=== PATIENT | female | born 1950 | race Caucasian/White ===

== ENCOUNTER 2017-04-18 13:23 | Outpatient (CLI) | payer MEDICARE, OTHER ==
--- NOTE | 2017-04-19 15:27 | Mammography Report ---
DIGITAL SCREENING MAMMOGRAM: 04/18/2017 CLINICAL INDICATION: A 67-year-old for screening. TECHNIQUE: Routine CC and MLO projections were obtained of the breasts. COMPARISON: 03/2014, 03/2013, 02/2010, 09/2008. FINDINGS: The breasts demonstrate scattered fibroglandular densities bilaterally. Coarse and puncta te, typically benign calcifications are present. No suspicious masses, clustered microcalcifications , or regions of architectural distortion are identified. IMPRESSION: BENIGN FINDINGS. RECOMMENDATION: Routine annual screening unless otherwise clinically indicated. BI-RADS category 2, benign findings. STANDARD QUALIFYING STATEMENTS 1. This examination was reviewed with the aid of Computer-Aided Detection (CAD). 2. A negative or benign imaging report should not delay biopsy if clinically suspicious findings are present. Consider surgical consultation if warranted. More than 5% of cancers are not identified by i maging. 3. Dense breasts may obscure an underlying neoplasm. :9 JOB #: [id number] EXT JOB #:[id number]
== END 2017-04-18 13:24 | disposition home or self-care (01) ==
LOC: DI 13:23
PROVIDERS: ATTEND Family Medicine
DX: Z12.31 Encounter for screening mammogram for malignant neoplasm of breast (principal)
CPT/HCPCS: 77067

== ENCOUNTER 2017-04-18 13:25 | Outpatient (CLI) | payer MEDICARE, OTHER ==
--- NOTE | 2017-04-19 10:19 | DEXA Report ---
DEXA SCAN: 04/18/2017 CLINICAL INDICATION: Postmenopausal. TECHNIQUE: Dual energy x-ray absorptiometry (DXA) was performed on a [employer] system. Regions measured are the AP spine, femoral neck, and, if needed, forearm. COMPARISON: None. In accordance with the International Society for Clinical Densitometry (ISCD) guidelines, data from previous exams may be reanalyzed using current recommendations and techniques. This is done to allow a more accurate basis for comparison with the current study. FINDINGS: The data for the lumbar spine is as follows: REGION BMD (g/cm/cm) T-SCORE Z-SCORE L1 1.323 1.6 2.6 L2 1.274 0.6 1.6 L3 1.329 1.1 2.1 L4 1.416 1.8 2.8 TOTAL 1.342 1.4 2.4 NOTE: All evaluable vertebrae are used for classification. The data for the hip is as follows: REGION BMD (g/cm/cm) T-SCORE Z-SCORE Neck 1.166 0.9 2.1 TOTAL 1.203 1.5 2.4 NOTE: The femoral neck or total proximal femur, whichever is lowest, is used for classification. IMPRESSION: THE WHO CLASSIFICATION BASED ON THE INTERNATIONAL REFERENCE STANDARD IS NORMAL. THE FRACTURE RISK IS NOT INCREASED. RECOMMENDATION: Patients with diagnosis of osteoporosis or osteopenia should have regular bone mineral density assessment. For those eligible for Medicare, routine testing is allowed once every 2 years. Testing frequency can be increased for patients who have rapidly progressing disease or for those who are receiving medical therapy to restore bone mass. COMMENT: World Health Organization (WHO) definitions for osteoporosis and osteopenia: NORMAL BMD: T-score at -1.0 or higher, fracture risk is low. OSTEOPENIA BMD: T-score between -1.0 and -2.5, fracture risk is increased. OSTEOPOROSIS BMD: T-score at -2.5 or lower, fracture risk high. National Osteoporosis Foundation recommends: 1. Obtain adequate dietary calcium (at least 1200 mg per day) and vitamin D (400 -800 international units per day). 2. Participate, as appropriate, in regular weightbearing and muscle- strengthening exercise. 3. Avoid tobacco use and reduce alcohol and caffeine intake. 4. For more detailed information see the website at www.NOF.org. MTDD
== END 2017-04-18 13:26 | disposition home or self-care (01) ==
LOC: DI 13:25
PROVIDERS: ATTEND Family Medicine
DX: Z78.0 Asymptomatic menopausal state (principal)
CPT/HCPCS: 77080

== ENCOUNTER 2019-10-03 09:00 | Outpatient (CLI) | payer MEDICARE, OTHER ==
[2019-10-03 19:04] LABS: BASOPHILS # (AUTO) 0.1 10^3/uL (0.0-0.1); BASOPHILS % (AUTO) 0.8 %; EOSINOPHILS # (AUTO) 0.2 10^3/uL (0.0-0.7); EOSINOPHILS % (AUTO) 2.2 %; HGB - HEMOGLOBIN 14.7 g/dL (12.0-16.0); LYMPHOCYTES # (AUTO) 1.8 10^3/uL (1.5-3.5); LYMPHOCYTES % (AUTO) 24.6 %; MEAN CORPUSCULAR HEMOGLOBIN 31.1 pg (27.0-31.0); MEAN CORPUSCULAR HGB CONC 31.6 g/dL (32.0-36.0); MEAN CORPUSCULAR VOLUME 98.3 fL (81.0-99.0); MEAN PLATELET VOLUME 10.2 fL (7.9-10.8); MONOCYTES # (AUTO) 0.9 10^3/uL (0.0-1.0); NEUTROPHILS # (AUTO) 4.4 10^3/uL (1.5-6.6); NEUTROPHILS % (AUTO) 60.1 %; PLT - PLATELET COUNT 304 10^3/uL (130-450); RED BLOOD COUNT 4.73 10^6/uL (4.20-5.40); RED CELL DISTRIBUTION WIDTH 14.9 % (12.0-15.0); WHITE BLOOD COUNT 7.3 x10^3/uL (4.8-10.8)
[2019-10-03 19:17] LABS: ALBUMIN 4.3 g/dL (3.2-5.5); ALBUMIN/GLOBULIN RATIO 1.5 (1.0-2.2); BILIRUBIN,TOTAL 0.5 mg/dL (0.2-1.0); CALCIUM 10.5 mg/dL (8.5-10.3); CREATININE 0.7 mg/dL (0.4-1.0); TOTAL PROTEIN 7.2 g/dL (6.7-8.2)
== END 2019-10-03 23:59 | disposition home or self-care (01) ==
LOC: LAB.WCP 09:00
PROVIDERS: ATTEND Family Medicine
DX: R19.7 Diarrhea, unspecified (principal)
CPT/HCPCS: 36415; 80053; 82150; 83690; 85025

== ENCOUNTER 2019-10-08 12:17 | Outpatient (CLI) | payer MEDICARE, OTHER ==
[2019-10-08] MEDS ORDERED: IOVERSOL 320 50 ML VIAL ONE (12:26)
[2019-10-08] MEDS ORDERED: IOVERSOL 320 100 ML VIAL IVP ONE (12:26)
[2019-10-08] MEDS: IOVERSOL 320 100 ML VIAL IVP ONE (13:18)
[2019-10-08] MEDS: IOVERSOL 320 50 ML VIAL PO ONE (13:18)
--- NOTE | 2019-10-09 17:45 | CT Report ---
Reason: Diarrheam elevated pancreatic enzymes Procedure Date: 10/08/2019 Accession Number: [id number] / [id number] Procedure: CT - Abdomen/Pelvis W CPT Code: Final Report FULL RESULT: EXAM: CT ABDOMEN AND PELVIS EXAM DATE: 10/08/2019 01:16 PM. CLINICAL HISTORY: Diarrhea elevated pancreatic enzymes. COMPARISONS: None. TECHNIQUE: Routine helical CT imaging was performed through the abdomen and pelvis. IV contrast: 100 mL of Optiray 320. Enteric contrast: No. Reconstructions: Coronal and sagittal. In accordance with CT protocol optimization, one or more of the following dose reduction techniques were utilized for this exam: automated exposure control, adjustment of mA and/or KV based on patient size, or use of iterative reconstructive technique. FINDINGS: Lung Bases: Unremarkable. Liver: Hepatic steatosis. No suspicious hepatic lesions. Gallbladder/Bile Ducts: Unremarkable. Spleen: Normal. Pancreas: Normal. Adrenal Glands: Normal. Kidneys: Normal. No masses or hydronephrosis. Peritoneal Cavity/Bowel: Normal caliber of the small bowel without evidence of obstruction. No focal bowel thickening or inflammation. Descending and sigmoid colon diverticulosis without CT evidence of acute diverticulitis. Appendix: Not visualized with certainty. No inflammatory changes adjacent to the cecum. Pelvic Organs: The bladder and visualized pelvic organs are within normal limits. Vasculature: No aneurysms or other significant abnormality. Bones: No significant abnormality. Other: None. IMPRESSION: 1. No acute findings in the abdomen or pelvis. 2. Descending and sigmoid colon diverticulosis without CT evidence of acute diverticulitis. 3. Hepatic steatosis. RADIA
== END 2019-10-08 12:18 | disposition home or self-care (01) ==
LOC: DI 12:17
PROVIDERS: ATTEND Family Medicine
DX: K76.0 Fatty (change of) liver, not elsewhere classified (principal); K57.30 Diverticulosis of large intestine without perforation or abscess without bleeding; R19.7 Diarrhea, unspecified; R74.8 Abnormal levels of other serum enzymes
CPT/HCPCS: 74177; Q9967

== ENCOUNTER 2019-10-11 07:00 | Outpatient (CLI) | payer MEDICARE, OTHER | END 2019-10-11 23:59 | disposition home or self-care (01) | LOC: LAB.R 07:00 | PROVIDERS: ATTEND Family Medicine | DX: R19.7 Diarrhea, unspecified (principal) | CPT/HCPCS: 81599; 82270; 83630; 87045; 87046; 87177; 87209; 87329; 87493 ==

== ENCOUNTER 2019-11-14 14:00 | Outpatient (CLI) | payer MEDICARE, OTHER ==
[2019-11-14 18:50] LABS: BASOPHILS # (AUTO) 0.1 10^3/uL (0.0-0.1); BASOPHILS % (AUTO) 0.8 %; EOSINOPHILS # (AUTO) 0.2 10^3/uL (0.0-0.7); HGB - HEMOGLOBIN 14.5 g/dL (12.0-16.0); LYMPHOCYTES # (AUTO) 1.8 10^3/uL (1.5-3.5); LYMPHOCYTES % (AUTO) 27.8 %; MEAN CORPUSCULAR HEMOGLOBIN 32.2 pg (27.0-31.0); MEAN CORPUSCULAR HGB CONC 32.6 g/dL (32.0-36.0); MEAN CORPUSCULAR VOLUME 98.9 fL (81.0-99.0); MEAN PLATELET VOLUME 10.1 fL (7.9-10.8); MONOCYTES # (AUTO) 0.7 10^3/uL (0.0-1.0); MONOCYTES % (AUTO) 10.7 %; NEUTROPHILS # (AUTO) 3.6 10^3/uL (1.5-6.6); NEUTROPHILS % (AUTO) 57.4 %; PLT - PLATELET COUNT 266 10^3/uL (130-450); RED CELL DISTRIBUTION WIDTH 14.8 % (12.0-15.0); WHITE BLOOD COUNT 6.3 x10^3/uL (4.8-10.8)
[2019-11-14 19:14] LABS: ALBUMIN 4.2 g/dL (3.2-5.5); ALBUMIN/GLOBULIN RATIO 1.4 (1.0-2.2); BILIRUBIN,TOTAL 0.5 mg/dL (0.2-1.0); CALCIUM 10.2 mg/dL (8.5-10.3); CREATININE 0.8 mg/dL (0.4-1.0); TOTAL PROTEIN 7.1 g/dL (6.7-8.2)
== END 2019-11-14 23:59 | disposition home or self-care (01) ==
LOC: LAB.WCP 14:00
PROVIDERS: ATTEND Family Medicine
DX: R74.8 Abnormal levels of other serum enzymes (principal)
CPT/HCPCS: 36415; 80053; 82150; 83690; 85025

== ENCOUNTER 2020-01-01 12:42 | Outpatient (CLI) | payer MEDICARE, OTHER ==
--- NOTE | 2020-01-01 15:00 | Mammography Report ---
Reason: ROUTINE MAMMO Procedure Date: 01/01/2020 Accession Number: [id number] / [id number] Procedure: [facility] - Screening Mammo w/Vivek CPT Code: Final Report FULL RESULT: EXAM: Screening Mammo w/Vivek DATE: 01/01/2020 1:10 PM CLINICAL HISTORY: Screening encounter. Family history of breast cancer in the sister at the age of 50. TECHNIQUE: (B) - Bilateral CC and MLO views were obtained. COMPARISON: 04/18/2017 through 03/04/2010. PARENCHYMAL PATTERN: (A) - The breast(s) demonstrate(s) scattered fibroglandular densities. FINDINGS: There are no suspicious masses, calcifications, or areas of distortion. IMPRESSION: Negative examination. BI-RADS category 1. RECOMMENDATION: (ANNUAL) - Recommend routine annual screening mammography. BI-RADS CATEGORY: (1) - Negative. STANDARD QUALIFYING STATEMENTS: 1. This examination was not reviewed with the aid of Computer-Aided Detection (CAD). 2. A negative or benign imaging report should not preclude biopsy if clinically suspicious findings are present. 3. Dense breasts may obscure an underlying neoplasm. 4. This examination was reviewed with the aid of 3D breast imaging (tomosynthesis).
== END 2020-01-01 12:43 | disposition home or self-care (01) ==
LOC: DI.N 12:42
DX: Z12.31 Encounter for screening mammogram for malignant neoplasm of breast (principal); Z80.3 Family history of malignant neoplasm of breast
CPT/HCPCS: 77063; 77067

== ENCOUNTER 2021-04-29 08:00 | Outpatient (CLI) | payer MEDICARE, OTHER ==
[2021-04-29 12:17] LABS: BASOPHILS # (AUTO) 0.1 10^3/uL (0.0-0.1); BASOPHILS % (AUTO) 0.7 %; EOSINOPHILS # (AUTO) 0.2 10^3/uL (0.0-0.7); HCT - HEMATOCRIT 45.5 % (37.0-47.0); HGB - HEMOGLOBIN 14.4 g/dL (12.0-16.0); LYMPHOCYTES # (AUTO) 1.9 10^3/uL (1.5-3.5); MEAN CORPUSCULAR HGB CONC 31.6 g/dL (32.0-36.0); MEAN CORPUSCULAR VOLUME 97.8 fL (81.0-99.0); MEAN PLATELET VOLUME 10.4 fL (7.9-10.8); MONOCYTES % (AUTO) 12.4 %; NEUTROPHILS # (AUTO) 4.9 10^3/uL (1.5-6.6); NEUTROPHILS % (AUTO) 60.2 %; PLT - PLATELET COUNT 289 10^3/uL (130-450); RED BLOOD COUNT 4.65 10^6/uL (4.20-5.40); RED CELL DISTRIBUTION WIDTH 14.3 % (12.0-15.0); WHITE BLOOD COUNT 8.1 x10^3/uL (4.8-10.8)
[2021-04-29 12:32] LABS: ALBUMIN 4.6 g/dL (3.2-5.5); ALBUMIN/GLOBULIN RATIO 1.5 (1.0-2.2); ALKALINE PHOSPHATASE 53 IU/L (42-121); ALT ALANINE AMINOTRANSFERASE 30 IU/L (10-60); AST ASPARTATE AMINOTRANSFERASE 23 IU/L (10-42); BILIRUBIN,TOTAL 0.5 mg/dL (0.2-1.0); BUN - BLOOD UREA NITROGEN 12 mg/dL (6-20); CALCIUM 11.1 mg/dL (8.5-10.3); CARBON DIOXIDE - CO2 29 mmol/L (21-32); CHLORIDE 100 mmol/L (101-111); CHOL/HDL RATIO 7.1 (<4.4); CHOLESTEROL 282 mg/dL; CREATININE 0.8 mg/dL (0.4-1.0); GFR - MDRD 71 (>89); GLUCOSE 109 mg/dL (70-100); HDL CHOLESTEROL 40 mg/dL; LDL CHOLESTEROL,CALCULATED 173 mg/dL; LDL/HDL RATIO 4.3 (<4.4); POTASSIUM 4.2 mmol/L (3.5-5.0); SODIUM 137 mmol/L (135-145); TOTAL PROTEIN 7.7 g/dL (6.7-8.2); TRIGLYCERIDES 346 mg/dL; VLDL CHOLESTEROL 69 mg/dL
[2021-04-29 12:33] LABS: BILIRUBIN,URINE NEGATIVE (NEGATIVE); GLUCOSE, URINE (UA) NEGATIVE (NEGATIVE); KETONES,URINE (UA) NEGATIVE (NEGATIVE); LEUKOCYTE ESTERASE, URINE TRACE (NEGATIVE); NITRITE,URINE NEGATIVE (NEGATIVE); OCCULT BLOOD,URINE NEGATIVE (NEGATIVE); PH,URINE 6.5 PH (5.0-7.5); PROTEIN,URINE NEGATIVE (NEGATIVE); UROBILINOGEN,URINE 0.2 (NORMAL) E.U./dL (NORMAL)
[2021-04-29 12:47] LABS: THYROID STIMULATING HORMONE 45.2 uIU/mL (0.34-5.60)
[2021-04-29 12:57] LABS: BACTERIA,URINE None Seen /HPF (None Seen); CLARITY,URINE CLEAR (CLEAR); RBC,URINE 0-5 /HPF (0-5); SQUAMOUS EPITHELIAL CELL,UR RARE Squamous (<= Few); WBC,URINE 0-3 /HPF (0-5)
[2021-04-29 13:54] LABS: FREE T4 (FREE THYROXINE) 0.57 ng/dL (0.58-1.64)
== END 2021-04-29 23:59 | disposition home or self-care (01) ==
LOC: LAB.WCP 08:00
PROVIDERS: ATTEND Family Medicine
DX: I10 Essential (primary) hypertension (principal)
CPT/HCPCS: 36415; 80053; 80061; 81001; 83721; 84439; 84443; 85025

== ENCOUNTER 2021-04-29 10:43 | Outpatient (CLI) | payer MEDICARE, OTHER ==
--- NOTE | 2021-04-29 11:41 | XRAY Report ---
PROCEDURE: Hip w/Pelvis 1V RT INDICATIONS: R HIP PX TECHNIQUE: AP pelvis with lateral view(s) of the bilateral hip(s). COMPARISON: None. FINDINGS: Bones: No fractures or dislocations. Pelvic ring appears intact. No suspicious bony lesions. Mode rate bilateral hip joint space narrowing and periarticular osteophyte formation. Soft tissues: The visualized bowel gas pattern is normal. No suspicious soft tissue calcifications. IMPRESSION: Bilateral hip osteoarthritis. No acute fracture. No osseous lesion. If symptoms and/or c linical suspicion for pathology continue, further assessment with repeat plain films, or advanced gabriel ging (e.g., CT, MRI, or bone scan) is recommended for further assessment. Reviewed by: Misty Box MD on 04/29/2021 11:39 AM PDT Approved by: Misty Box MD on 04/29/2021 11:39 AM PDT Station ID: [id number]
--- NOTE | 2021-04-29 12:37 | XRAY Report ---
PROCEDURE: Lumbar Spine 2 View INDICATIONS: R SIDE SCIATICA TECHNIQUE: 3 views of the lumbar spine were acquired. COMPARISON: None. FINDINGS: Bones: 5 [id number] vertebrae are present. There is grade 1 anterolisthesis of L4 over L5. This is likely due to facet arthrosis seen predominantly from L2 through S1. No vertebral body height los s. The sacroiliac joints are normal. L4-5 and L5-S1 demonstrate disc space narrowing. Soft tissues: Overlying bowel gas pattern is normal. No suspicious soft tissue calcifications. The aorta has atherosclerotic calcifications. IMPRESSION: 1. Facet arthrosis of the lumbar spine with grade 1 anterolisthesis of L4 over L5. 2. Degenerative disc disease with disc space narrowing at L4-5 and L5-S1. Reviewed by: Kevyn Blanco on 04/29/2021 12:36 PM PDT Approved by: Kevyn Blanco on 04/29/2021 12:36 PM PDT Station ID: [id number]
== END 2021-04-29 10:44 | disposition home or self-care (01) ==
LOC: DI.N 10:43
PROVIDERS: ATTEND Family Medicine
DX: M43.16 Spondylolisthesis, lumbar region (principal); M43.17 Spondylolisthesis, lumbosacral region; M51.36 Other intervertebral disc degeneration, lumbar region; M48.061 Spinal stenosis, lumbar region without neurogenic claudication; M51.37 Other intervertebral disc degeneration, lumbosacral region; M48.07 Spinal stenosis, lumbosacral region; M16.0 Bilateral primary osteoarthritis of hip; I10 Essential (primary) hypertension
CPT/HCPCS: 36415; 80053; 80061; 81001; 83721; 84439; 84443; 85025

== ENCOUNTER 2021-05-12 10:21 | Outpatient (CLI) | payer MEDICARE, OTHER | END 2021-05-12 23:59 | disposition home or self-care (01) | LOC: LAB.WCP 10:21 | PROVIDERS: ATTEND Family Medicine | DX: E83.52 Hypercalcemia (principal) | CPT/HCPCS: 36415; 82306; 82330; 83970 ==

== ENCOUNTER 2021-06-16 08:54 | Outpatient (CLI) | payer MEDICARE, OTHER ==
--- NOTE | 2021-06-16 12:47 | Nuclear Medicine Report ---
PROCEDURE: Parathyroid Scan w/SPECT INDICATIONS: HYPERPARATHYROIDISM RADIOPHARMACEUTICAL: 24.6 mCi Tc-99m sestamibi IV. TECHNIQUE: After intravenous administration of Tc-99m sestamibi, anterior planar images of the neck and mediasti num were obtained at approximately 10 minutes and 2-3 hours. SPECT images were acquired after the 10 minute planar images. COMPARISON: None FINDINGS: On the early images, the thyroid gland is bilobed and has normal size and morphology. The re is no focal increased activity in the thyroid bed. The delayed images show preferential tracer r etention in the inferior left thyroid bed ingesting parathyroid adenoma. IMPRESSION: Scintigraphic findings suggestive of parathyroid adenoma localizing to the inferior left thyroid bed. Recommend multiphase CT scan of the neck (parathyroid protocol) for additional evaluati on. Reviewed by: Basia Mir MD, PhD on 06/16/2021 12:46 PM PDT Approved by: Basia Mir MD, PhD on 06/16/2021 12:46 PM PDT Station ID: [id number]
== END 2021-06-16 08:55 | disposition home or self-care (01) ==
LOC: DI 08:54
PROVIDERS: ATTEND Family Medicine
DX: E21.3 Hyperparathyroidism, unspecified (principal)
CPT/HCPCS: 78071

== ENCOUNTER 2021-08-24 16:54 | Outpatient (CLI) | payer MEDICARE, OTHER ==
--- NOTE | 2021-08-27 02:21 | XRAY Report ---
PROCEDURE: Shoulder 2 View BILAT INDICATIONS: BILATERAL SHOULDER PX TECHNIQUE: 2 views of the shoulder were acquired. Images became available for review on 08/26/2021. COMPARISON: None. FINDINGS: Bones: No fractures or dislocations. No suspicious bony lesions. Visualized ribs appear intact. T here is moderate to severe bilateral acromioclavicular degenerative narrowing. Minimal to mild bilate ral glenohumeral degenerative narrowing. Soft tissues: No suspicious soft tissue calcifications. IMPRESSION: Acromioclavicular and glenohumeral arthritic change. Reviewed by: Susi Shaffer MD on 08/27/2021 1:42 AM PDT Approved by: Susi Shaffer MD on 08/27/2021 1:42 AM PDT Station ID: [id number]
== END 2021-08-24 16:55 | disposition home or self-care (01) ==
LOC: DI.N 16:54
PROVIDERS: ATTEND Family Medicine
DX: M19.012 Primary osteoarthritis, left shoulder (principal); M19.011 Primary osteoarthritis, right shoulder

== ENCOUNTER 2021-09-10 08:00 | Outpatient (CLI) | payer MEDICARE, OTHER ==
[2021-09-10 18:51] LABS: CHOL/HDL RATIO 3.6 (<4.4); CHOLESTEROL 133 mg/dL; HDL CHOLESTEROL 37 mg/dL; LDL CHOLESTEROL,CALCULATED 68 mg/dL; LDL/HDL RATIO 1.8 (<4.4); TRIGLYCERIDES 142 mg/dL; VLDL CHOLESTEROL 28 mg/dL
== END 2021-09-10 23:59 | disposition home or self-care (01) ==
LOC: LAB.WCP 08:00
PROVIDERS: ATTEND Family Medicine
DX: E78.5 Hyperlipidemia, unspecified (principal)
CPT/HCPCS: 36415; 80061; 83721

== ENCOUNTER 2021-11-17 11:15 | Day surgery (SDC) | payer MEDICARE, OTHER ==
[~2021-11-17 11:15] MED LIST: LACTATED RINGERS 1,000 ML IV ONE
--- NOTE | 2021-11-17 12:39 | ANESTHESIA ---
Pre-Anesthesia VS, & Labs - Diagnosis polyps - Procedure colonoscopy Vital Signs: Temp Pulse Resp BP Pulse Ox 36.5 C 67 12 141/86 H 97 11/17/21 11:34 11/17/21 11:34 11/17/21 11:34 11/17/21 11:34 11/17/21 11:34 Height: 5 ft 2 in Weight (kg): 84.2 kg Body Mass Index: 33.9 BMI Classification: Obese - NPO >8 hours - Is Patient ?: No Home Medications and Allergies Home Medications: Ambulatory Orders Levothyroxine [Synthroid] 100 mcg PO DAILY 11/16/21 amLODIPine [Norvasc] 2.5 mg PO DAILY 11/16/21 hydroCHLOROthiazide [Hydrochlorothiazide] 25 mg PO DAILY 11/16/21 Acetaminophen [Tylenol Arthritis] 1,300 mg PO DAILY PM PRN 11/17/21 Ibuprofen 400 mg PO DAILY PM PRN 11/17/21 Melatonin/Pyridoxine [Melatonin 5 mg Tablet] 10 mg PO DAILY PM 11/17/21 Ascorbic Acid [Vitamin C] 1,000 mg PO DAILY 11/01/14 Cholecalciferol (Vitamin D3) [Vitamin D] 1,000 unit PO DAILY 11/01/14 Multivit with Calcium,Iron,Min [Multiple Vitamins For Women] 1 each PO DAILY 11/01/14 Magnesium 1 tab PO DAILY 11/04/14 Levothyroxine [Synthroid] 100 mcg PO DAILY 11/16/21 amLODIPine [Norvasc] 2.5 mg PO DAILY 11/16/21 hydroCHLOROthiazide [Hydrochlorothiazide] 25 mg PO DAILY 11/16/21 Acetaminophen [Tylenol Arthritis] 1,300 mg PO DAILY PM PRN 11/17/21 Ibuprofen 400 mg PO DAILY PM PRN 11/17/21 Melatonin/Pyridoxine [Melatonin 5 mg Tablet] 10 mg PO DAILY PM 11/17/21 Allergies/Adverse Reactions: Allergies Allergy/AdvReac Type Severity Reaction Status Date / Time atorvastatin AdvReac Unknown Verified 11/17/21 11:43 Anes History & Medical History - Anesthetic History Anesthesia Complications: reports: No previous complications - Medical History Cardiovascular: reports: Hypertension, High cholesterol Pulmonary: reports: Shortness of breath, Sleep apnea Gastrointestinal: reports: None Urinary: reports: None Musculoskeletal: reports: Osteoarthritis, Chronic back pain Endocrine/Autoimmune: reports: HyPOthyroidism Skin: reports: None History of Cancer?: No - Surgical History General: reports: Appendectomy Eyes Ears Nose Throat (EENT): reports: Tonsil/Adenoidectomy Orthopedic: reports: Knee replacement, Carpal Tunnel surgery, Other Exam General: Alert, Oriented x3 Dental: WNL Mouth Opening: Greater than 4 Fingerbreadths Neck Mobility: Normal Mallampati classification: III Thyromental Distance: greater than 6 cm Respiratory: Lungs clear Cardiovascular: Regular rate Plan Anesthesia Type: Total IV Consent for Procedure(s) Verified and Reviewed: Yes Code Status: Attempt Resuscitation ASA classification: 2-Mild systemic disease Is this case an emergency?: No
[2021-11-17] MEDS ORDERED: LACTATED RINGERS 1,000 ML IV ONE (13:37)
[2021-11-17 14:03] VITALS: BP 124/75
--- NOTE | 2021-11-17 14:39 | ANESTHESIA POST OP EVALUATION ---
Anesthesia Post Eval - Post Anesthesia Eval Vitals: Last Vital Signs Temp 36.7 C 11/17/21 13:35 Pulse 64 11/17/21 13:52 Resp 20 11/17/21 13:52 BP 124/75 11/17/21 13:52 Pulse Ox 100 11/17/21 13:52 CV Function Including HR & BP: Stable Pain Control: Satisfactory Nausea & Vomiting: Negative Mental Status: Baseline Respiratory Status: Airway Patent Hydration Status: Satisfactory Anesthesia Complications: None
== END 2021-11-17 11:16 | disposition home or self-care (01) ==
LOC: SDS 11:15
PROVIDERS: ATTEND Surgery
PROC: 0DBN8ZX Excision of Sigmoid Colon, Via Natural or Artificial Opening Endoscopic, Diagnostic (ICD-10-PCS; 2021-11-17)
PROC: 0DBP8ZX Excision of Rectum, Via Natural or Artificial Opening Endoscopic, Diagnostic (ICD-10-PCS; 2021-11-17)
PROC: 0DBK8ZX Excision of Ascending Colon, Via Natural or Artificial Opening Endoscopic, Diagnostic (ICD-10-PCS; principal; 2021-11-17 13:00)
DX: Z12.11 Encounter for screening for malignant neoplasm of colon (principal); K57.31 Diverticulosis of large intestine without perforation or abscess with bleeding; K62.1 Rectal polyp; K63.5 Polyp of colon; K64.4 Residual hemorrhoidal skin tags; K64.8 Other hemorrhoids; G47.33 Obstructive sleep apnea (adult) (pediatric); I10 Essential (primary) hypertension; F17.200 Nicotine dependence, unspecified, uncomplicated; E66.9 Obesity, unspecified; Z68.35 Body mass index [BMI] 35.0-35.9, adult; Z79.899 Other long term (current) drug therapy
CPT/HCPCS: 45380; J7120

== ENCOUNTER 2021-12-14 11:47 | Outpatient (CLI) | payer MEDICARE, OTHER ==
--- NOTE | 2021-12-14 13:01 | CT Report ---
PROCEDURE: Low Dose Lung Cancer Screen INDICATIONS: NICOTINE ABUSE TECHNIQUE: Noncontrast low-dose images were acquired from the pulmonary apices to the posterior costophrenic ang les. Multiplanar MIP reformats were then acquired. For radiation dose reduction, the following was used: automated exposure control, adjustment of mA and/or kV according to patient size. COMPARISON: CT chest 08/13/2014. FINDINGS: Image quality: Excellent. Lungs and pleura: Mild emphysematous change. There are several scattered areas of groundglass opacit y and a few pulmonary nodules. For example -Right upper lobe groundglass nodule 0.9 cm, (4/130), remotely faintly visualized. -Right upper lobe ill-defined groundglass nodule 0.7 cm, (4/148), remotely 0.5 cm. -Right upper lobe focally dilated vessel versus pulmonary nodule, (4/99), not previously seen. -Left upper lobe pulmonary nodule measuring 0.6 cm, (4/107), remotely 0.6 cm. -Left lower lobe pulmonary nodule measuring 0.6 cm, (4/148), not previously seen. (Note: Remote CTs slice thickness 5 mm.) There is trace secretions versus small web in the right mainstem bronchus. There are are a few distal mucus airway plugs. No pleural effusion. No pneumothorax. Mediastinum: Heart size is normal. No pericardial effusion. Suspect enlarged right paratracheal nod e measuring 2 cm, (3/24), remotely 0.9 cm. Thoracic aorta and central pulmonary arteries are normal in size. Esophagus is normal in caliber. No hiatal hernia. Bones and chest wall: No suspicious bony lesions. No vertebral body compression fractures. No axil clemente or supraclavicular adenopathy by size criteria. The thyroid is normal in size and there are no incidental findings. Abdomen: Visualized upper abdomen solid organs and bowel loops appear normal in the absence of contr ast. IMPRESSION: 1. A few scattered pulmonary nodules. A larger nodule solid nodule in the left lower lobe measuring 0 .6 cm was not previously seen. However, some of the nodules are remotely seen and appear similar. 2. A few scattered groundglass pulmonary nodules. A larger groundglass nodule in the right upper lobe measuring 0.9 cm, not previously seen. Question if some of these ground glass opacities are related to prior infectious/inflammatory etiology. Recommend clinical correlation. 3. Suspect a focally dilated vessel in the right upper lobe. 4. Suspect enlarged right paratracheal node. Lung RADS [address] of the chest with IV contrast given the enlarged lymph node. Subsequently recommend low-dose chest CT in 6 months. Reviewed by: Jai Winn MD on 12/14/2021 12:59 PM PST Approved by: Jai Winn MD on 12/14/2021 12:59 PM PST Station ID: [id number]
== END 2021-12-14 11:48 | disposition home or self-care (01) ==
LOC: DI 11:47
PROVIDERS: ATTEND Family Medicine
DX: Z12.2 Encounter for screening for malignant neoplasm of respiratory organs (principal); R91.8 Other nonspecific abnormal finding of lung field; F17.210 Nicotine dependence, cigarettes, uncomplicated

== ENCOUNTER 2022-01-15 12:16 | Outpatient (CLI) | payer MEDICARE, OTHER ==
[2022-01-15] MEDS ORDERED: IOVERSOL 320 100 ML VIAL IVP ONE (12:40)
[2022-01-15 12:51] LABS: CREATININE 0.7 mg/dL (0.4-1.0)
[2022-01-15] MEDS: IOVERSOL 320 100 ML VIAL IVP ONE (13:26)
--- NOTE | 2022-01-15 14:11 | CT Report ---
PROCEDURE: CHEST W INDICATIONS: LYMPHADENOPATHY, LUNG NODULE CONTRAST: IV CONTRAST: Optiray 320 ml: 100 PO CONTRAST: *NO PO CONTRAST TECHNIQUE: After the administration of intravenous contrast, 1 mm axial images were acquired from the pulmonary apices through the posterior costophrenic angles. Axial 5 mm soft tissue kernel reconstructions were performed as well as 8 mm axial MIP and coronal and sagittal 5 mm reformations. For radiation dose reduction, the following was used: automated exposure control, adjustment of mA and/or kV according to patient size. COMPARISON: Prior studies dating back to August 13, 2014. FINDINGS: CT CHEST: Thyroid: Coarse calcification in the left thyroid. Vasculature: The thoracic aorta and arch vasculature have a normal contrasted appearance and are norm al size and contour. No evidence for dissection. Heart: No cardiomegaly or significant pericardial effusion. Mediastinum: Mediastinal and right hilar lymphadenopathy is seen measuring up to 3.8 x 2.5 cm (3-21). Lung/pleura: No pleural effusion, consolidation, or pneumothorax. Groundglass nodule in the right upper lobe, measuring 1 cm (4-117); grossly unchanged when accounting for differences in the measurement plane. Scattered, spiculated nodule densities are seen in the right upper lobe with presumed possible mucoid impaction. A few additional, spiculated nodular densities are seen in the left upper and lower lobes (left upper lobe; measuring 6.2 mm, 4-78). Tracheobronchial tree: Patent. Upper abdomen: 7 mm nodule in the lateral limb of the left adrenal gland, producing demonstrated repr esent adenoma. Hepatic steatosis. Bones: No significant abnormality. Multifocal degenerative change. Chest wall: The chest wall and axilla are within normal limits. IMPRESSION: 1.Persistent scattered bilateral pulmonary nodules are seen, which measure less than 1 cm may reflect an infectious or inflammatory process. A neoplastic process cannot be excluded. 2.Mediastinal and right hilar lymphadenopathy, which appears pathologic. The lesion may be amenable t o transbronchial biopsy. Consider pulmonary consultation for further evaluation. Reviewed by: Uzair Bravo MD on 01/15/2022 2:10 PM PDT Approved by: Uzair Bravo MD on 01/15/2022 2:10 PM PDT Station ID: [id number]
== END 2022-01-15 12:17 | disposition home or self-care (01) ==
LOC: LAB 12:16
PROVIDERS: ATTEND Family Medicine
DX: R59.1 Generalized enlarged lymph nodes (principal); R59.0 Localized enlarged lymph nodes; R91.8 Other nonspecific abnormal finding of lung field
CPT/HCPCS: 36415; 71260; 82565; Q9967

== ENCOUNTER 2022-03-03 12:59 | Outpatient (CLI) | payer MEDICARE, OTHER ==
--- NOTE | 2022-03-03 14:32 | XRAY Report ---
PROCEDURE: Lumbar Spine 2 View INDICATIONS: ELDERLY FALL, LOW BACK PX TECHNIQUE: 2 views of the lumbar spine were acquired. COMPARISON: None. FINDINGS: Bones: 5 [id number] vertebrae are present. Multilevel lower lumbar facet arthropathy. Grade 1 a nterolisthesis of L4 on L5 measures 7 mm. Multilevel disc height loss. No vertebral body compression fractures. No suspicious bony lesions. Soft tissues: Overlying bowel gas pattern is normal. No suspicious soft tissue calcifications. IMPRESSION: Lumbar degenerative change. Multilevel facet arthropathy with grade 1 anterolisthesis of L4 on L5. No evidence acute bony abnormality of the lumbar spine. If clinical suspicion and/or symptoms persist, further assessment with lumbar spine MRI) may be helpf ul for further assessment. Reviewed by: Yuval Zimmer MD on 03/03/2022 2:31 PM PDT Approved by: Yuval Zimmer MD on 03/03/2022 2:31 PM PDT Station ID: [id number]
== END 2022-03-03 13:00 | disposition home or self-care (01) ==
LOC: DI 12:59
PROVIDERS: ATTEND Family Medicine
DX: R29.6 Repeated falls (principal); M43.16 Spondylolisthesis, lumbar region; M47.816 Spondylosis without myelopathy or radiculopathy, lumbar region; M51.36 Other intervertebral disc degeneration, lumbar region

== ENCOUNTER 2022-03-08 14:50 | Outpatient (CLI) | payer MEDICARE, OTHER ==
[2022-03-08 18:28] LABS: ALBUMIN 4.3 g/dL (3.2-5.5); CALCIUM 10.5 mg/dL (8.5-10.3); CREATININE 0.8 mg/dL (0.4-1.0); PHOSPHORUS 2.7 mg/dL (2.5-4.6); POTASSIUM 3.9 mmol/L (3.5-5.0)
[2022-03-08 18:45] LABS: THYROID STIMULATING HORMONE 4.98 uIU/mL (0.34-5.60)
[2022-03-08 18:47] LABS: FREE T4 (FREE THYROXINE) 0.94 ng/dL (0.58-1.64)
[2022-03-08 20:21] LABS: ESTIMATED AVERAGE GLUCOSE 123 mg/dL (70-100); HEMOGLOBIN A1c% 5.9 % (4.27-6.07)
== END 2022-03-08 14:51 | disposition home or self-care (01) ==
LOC: LAB.N 14:50
PROVIDERS: ATTEND Nurse Practitioner Family
DX: E21.0 Primary hyperparathyroidism (principal); G62.9 Polyneuropathy, unspecified; R73.9 Hyperglycemia, unspecified; E83.52 Hypercalcemia
CPT/HCPCS: 36415; 80069; 82306; 82607; 83036; 83970; 84425; 84439; 84443

== ENCOUNTER 2022-11-11 14:40 | Outpatient (CLI) | payer MEDICARE, OTHER ==
[2022-11-11 18:59] LABS: ALBUMIN 4.1 g/dL (3.2-5.5); CALCIUM 10.5 mg/dL (8.5-10.3); CREATININE 0.8 mg/dL (0.4-1.0); PHOSPHORUS 3.5 mg/dL (2.5-4.6); POTASSIUM 3.8 mmol/L (3.5-5.0)
[2022-11-11 19:19] LABS: THYROID STIMULATING HORMONE 1.17 uIU/mL (0.34-5.60)
[2022-11-11 19:21] LABS: FREE T4 (FREE THYROXINE) 0.94 ng/dL (0.58-1.64)
== END 2022-11-11 14:41 | disposition home or self-care (01) ==
LOC: LAB.N 14:40
PROVIDERS: ATTEND Student in an Organized Health Care Education/Training Program
DX: E21.3 Hyperparathyroidism, unspecified (principal); E03.9 Hypothyroidism, unspecified
CPT/HCPCS: 36415; 80069; 82306; 83970; 84439; 84443

== ENCOUNTER 2022-11-13 08:00 | Outpatient (CLI) | payer MEDICARE, OTHER | END 2022-11-13 23:59 | disposition home or self-care (01) | LOC: LAB.R 08:00 | PROVIDERS: ATTEND Student in an Organized Health Care Education/Training Program | DX: E21.3 Hyperparathyroidism, unspecified (principal) | CPT/HCPCS: 81599; 82340; 82570 ==

== ENCOUNTER 2023-08-28 11:28 | Outpatient (CLI) | payer MEDICARE, OTHER | END 2023-08-28 11:29 | disposition critical access hospital (66) | LOC: EMS 11:28 | DX: R50.9 Fever, unspecified (principal); R53.1 Weakness; R53.83 Other fatigue; R05.9 Cough, unspecified; R00.0 Tachycardia, unspecified | CPT/HCPCS: A0425; A0427 ==

== ENCOUNTER 2023-08-28 12:24 | Inpatient (IN) | payer MEDICARE, OTHER ==
[2023-08-28 13:05] LABS: BASOPHILS % (AUTO) 2.2 %; EOSINOPHILS % (AUTO) 2.2 %; HCT - HEMATOCRIT 28.7 % (37.0-47.0); HGB - HEMOGLOBIN 9.3 g/dL (12.0-16.0); LYMPHOCYTES % (AUTO) 40.9 %; MEAN CORPUSCULAR HEMOGLOBIN 30.9 pg (27.0-31.0); MEAN CORPUSCULAR HGB CONC 32.4 g/dL (32.0-36.0); MEAN CORPUSCULAR VOLUME 95.3 fL (81.0-99.0); MEAN PLATELET VOLUME 9.5 fL (7.9-10.8); MONOCYTES % (AUTO) 49.5 %; NEUTROPHILS % (AUTO) 4.1 %; PLT - PLATELET COUNT 101 10^3/uL (130-450); RED BLOOD COUNT 3.01 10^6/uL (4.20-5.40); RED CELL DISTRIBUTION WIDTH 15.5 % (12.0-15.0)
[2023-08-28 13:08] LABS: BAND NEUTROPHILS % (MANUAL) 0 %; WHITE BLOOD COUNT 0.9 x10^3/uL (4.8-10.8)
[2023-08-28] MEDS ORDERED: SODIUM CHLORIDE 0.9% 1,000 ML IV STA (13:08)
--- NOTE | 2023-08-28 13:11 | ED Physician Documentation ---
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 She was started on IV vancomycin and cefepime during the admission and completed 14 days of IV ceftriaxone. Her last dose of antibiotic therapy was on August 03. There was concerned that the source of the infection could be her port but her port was cleared by infectious disease at [facility] and she was allowed to resume chemotherapy. Her last chemo appointment was August 17. Per the daughter she was doing well up until today when she developed weakness. Daughter checked her temperature and it was 101.6. She was too weak to get into the car to be transported to the hospital so EMS was called. EMS also obtained a temperature of 102. She has not received any antipyretics prior to arrival. She has had a cough which has been unchanged. She has had recent issues with constipation but no vomiting. No diarrhea. No abnormal urination. Review of Systems Constitutional: reports: Fever Cardiac: denies: Chest pain / pressure Respiratory: reports: Cough. denies: Dyspnea GI: denies: Abdominal Pain, Vomiting, Diarrhea : denies: Dysuria Neurologic: reports: Generalized weakness PD PAST MEDICAL HISTORY - Past Medical History Past Medical History: Yes Cardiovascular: Hypertension, High cholesterol Respiratory: Shortness of breath, Sleep apnea, Other Endocrine/Autoimmune: HyPOthyroidism GI: None : None HEENT: None Psych: None Musculoskeletal: Osteoarthritis, Chronic back pain Derm: None Other Past Medical History: lung cancer - Past Surgical History Past Surgical History: Yes General: Appendectomy Ortho: Knee replacement, Carpal Tunnel surgery, Other HEENT: Tonsil/Adenoidectomy - Present Medications Home Medications: Ambulatory Orders Medication Instructions Recorded Confirmed Ascorbic Acid [Vitamin C] 1,000 mg PO DAILY 11/01/14 11/16/21 Cholecalciferol (Vitamin D3) 1,000 unit PO DAILY 11/01/14 11/16/21 [Vitamin D] Multivit with Calcium,Iron,Min 1 each PO DAILY 11/01/14 11/16/21 [Multiple Vitamins For Women] Magnesium 1 tab PO DAILY 11/04/14 11/17/21 Levothyroxine [Synthroid] 100 mcg PO DAILY 11/16/21 11/16/21 amLODIPine [Norvasc] 2.5 mg PO DAILY 11/16/21 11/17/21 hydroCHLOROthiazide 25 mg PO DAILY 11/16/21 11/16/21 [Hydrochlorothiazide] Acetaminophen [Tylenol Arthritis] 1,300 mg PO DAILY PM PRN 11/17/21 11/17/21 Ibuprofen 400 mg PO DAILY PM PRN 11/17/21 11/17/21 Melatonin/Pyridoxine [Melatonin 5 10 mg PO DAILY PM 11/17/21 11/17/21 mg Tablet] - Allergies Allergies/Adverse Reactions: Allergies Allergy/AdvReac Type Severity Reaction Status Date / Time atorvastatin AdvReac Unknown Verified 08/28/23 12:28 - Social History Does the pt smoke?: No Smoking Status: Never smoker - Immunizations Immunizations are current?: Yes PD ED PE NORMAL - General General: Alert and oriented X 3, No acute distress, Well developed/nourished - HEENT HEENT: Atraumatic, Moist mucous membranes, Pharynx benign - Neck Neck: Supple, no meningeal sign - Cardiac Cardiac: RRR, No murmur, Other (Port to left chest wall with no overlying redness, swelling) - Respiratory Respiratory: No respiratory distress, Clear bilaterally - Abdomen Abdomen: Normal bowel sounds, Soft, Non tender, Non distended - Derm Derm: Warm and dry - Extremities Extremities: No calf tenderness / cord - Neuro Neuro: Alert and oriented X 3, No motor deficit, Normal speech Results - Vitals Vitals: Vital Signs - 24 hr 08/28/23 08/28/23 08/28/23 12:28 12:36 17:06 Temperature 37.5 C 37.5 C Heart Rate 91 91 88 Respiratory 20 20 22 Rate Blood Pressure 131/70 H 131/70 H 131/85 H O2 Saturation 92 92 94 Oxygen O2 Source Room air - EKG (time done) 1313 EKG releavant findings:: EKG personally interpreted by author of this note. Relevant findings are: Rate 88, normal sinus rhythm, PVC, no STEMI - Labs Labs: Laboratory Tests 08/28/23 08/28/23 08/28/23 12:40 12:53 12:53 WBC 0.9 L* RBC 3.01 L Hgb 9.3 L Hct 28.7 L MCV 95.3 MCH 30.9 MCHC 32.4 RDW 15.5 H Plt Count 101 L MPV 9.5 Neut # (Auto) Not Reportable Lymph # (Auto) Not Reportable Bleckley # (Auto) Not Reportable Eos # (Auto) Not Reportable Baso # (Auto) Not Reportable Absolute Nucleated RBC Not Reportable Total Counted 100 Band Neuts % (Manual) 0 Abnorm Lymph % (Manual) 3 Metamyelocytes % 1 H Nucleated RBC % Not Reportable Neutrophils # (Manual) 0.0 L* Lymphocytes # (Manual) 0.6 L Monocytes # (Manual) 0.3 Eosinophils # (Manual) 0.0 Basophils # (Manual) 0.0 Differential Comment MANUAL DIFFERENTIAL WBC Morphology NORMAL APPEARANCE Platelet Estimate DECREASED (<130,000) Platelet Morphology 1+ LARGE PLATELETS RBC Morph Micro Appear NORMAL APPEARANCE Sodium 133 L Potassium 3.3 L Chloride 100 L Carbon Dioxide 26 Anion Gap 7.0 BUN 7 Creatinine 0.4 L Estimated GFR (MDRD) 156 Glucose 101 Lactic Acid Calcium 9.7 Magnesium Total Bilirubin 0.4 AST 9 L ALT 8 L Alkaline Phosphatase 70 Total Protein 6.1 L Albumin 3.3 Globulin 2.8 Albumin/Globulin Ratio 1.2 Lipase < 10 L Urine Color Urine Clarity Urine pH Ur Specific Agra Urine Protein Urine Glucose (UA) Urine Ketones Urine Occult Blood Urine Nitrite Urine Bilirubin Urine Urobilinogen Ur Leukocyte Esterase Ur Microscopic Review Urine Culture Comments Nasal Adenovirus (PCR) NOT DETECTED Nasal B. parapertussis DNA (PCR) NOT DETECTED Nasal Coronavir 229E PCR NOT DETECTED Nasal Coronavir HKU1 PCR NOT DETECTED Nasal Coronavir NL63 PCR NOT DETECTED Nasal Coronavir OC43 PCR NOT DETECTED Nasal Enterovir/Rhinovir PCR NOT DETECTED Nasal Influenza B PCR NOT DETECTED Nasal Influenza A PCR NOT DETECTED Nasal Parainfluen 1 PCR NOT DETECTED Nasal Parainfluen 2 PCR NOT DETECTED Nasal Parainfluen 3 PCR NOT DETECTED Nasal Parainfluen 4 PCR NOT DETECTED Nasal RSV (PCR) NOT DETECTED Nasal B.pertussis DNA PCR NOT DETECTED Nasal C.pneumoniae (PCR) NOT DETECTED Gordo Human Metapneumo PCR NOT DETECTED Nasal M.pneumoniae (PCR) NOT DETECTED Nasal SARS-CoV-2 (PCR) NOT DETECTED 08/28/23 08/28/23 08/28/23 12:53 12:58 13:21 WBC RBC Hgb Hct MCV MCH MCHC RDW Plt Count MPV Neut # (Auto) Lymph # (Auto) Bleckley # (Auto) Eos # (Auto) Baso # (Auto) Absolute Nucleated RBC Total Counted Band Neuts % (Manual) Abnorm Lymph % (Manual) Metamyelocytes % Nucleated RBC % Neutrophils # (Manual) Lymphocytes # (Manual) Monocytes # (Manual) Eosinophils # (Manual) Basophils # (Manual) Differential Comment WBC Morphology Platelet Estimate Platelet Morphology RBC Morph Micro Appear Sodium Potassium Chloride Carbon Dioxide Anion Gap BUN Creatinine Estimated GFR (MDRD) Glucose Lactic Acid 0.8 Calcium Magnesium 1.4 L Total Bilirubin AST ALT Alkaline Phosphatase Total Protein Albumin Globulin Albumin/Globulin Ratio Lipase Urine Color YELLOW Urine Clarity CLEAR Urine pH 6.5 Ur Specific Agra 1.020 Urine Protein TRACE Urine Glucose (UA) NEGATIVE Urine Ketones TRACE Urine Occult Blood NEGATIVE Urine Nitrite NEGATIVE Urine Bilirubin NEGATIVE Urine Urobilinogen 1 (NORMAL) Ur Leukocyte Esterase NEGATIVE Ur Microscopic Review NOT INDICATED Urine Culture Comments NOT INDICATED Nasal Adenovirus (PCR) Nasal B. parapertussis DNA (PCR) Nasal Coronavir 229E PCR Nasal Coronavir HKU1 PCR Nasal Coronavir NL63 PCR Nasal Coronavir OC43 PCR Nasal Enterovir/Rhinovir PCR Nasal Influenza B PCR Nasal Influenza A PCR Nasal Parainfluen 1 PCR Nasal Parainfluen 2 PCR Nasal Parainfluen 3 PCR Nasal Parainfluen 4 PCR Nasal RSV (PCR) Nasal B.pertussis DNA PCR Nasal C.pneumoniae (PCR) Gordo Human Metapneumo PCR Nasal M.pneumoniae (PCR) Nasal SARS-CoV-2 (PCR) PD Medical Decision Making - ED course Complexity details: reviewed results, re-evaluated patient, d/w patient, d/w emmie velasquez (Daughter) ED course: Patient is a 73-year-old female with a history of metastatic lung cancer presenting for evaluation of generalized weakness. Noted to be febrile at home. On arrival her temperature readings here are within normal limits but she does feel warm to the touch. She appears generally weak. She is otherwise alert and at her baseline. Sepsis labs were obtained including a set of cultures from her port. The initial 2 blood cultures were taken peripherally so I did order a third set which was specifically ordered to be from her port. CBC and chemistries were obtained and reviewed and patient is found to be pancytopenic with an absolute neutrophil count of 0.Patient recently had a course of neutropenic fever with concerns that her port was a source and completed 14 days of IV antibiotics on August 03. Initially discussed with our admitting hospitalist who felt that she would be better served where her ID specialist is. [facility] available but I did speak with their ID physician and he was very helpful and agreeable to being available for phone consultation as he is on-call for the remainder of the week. I then discussed again with our hospitalist who feels comfortable with managing the patient here. Patient has been started on cefepime and vancomycin. She has been hemodynamically stable. Patient to be admitted for further management. 1340 - Discussed with admitting hospitalist Dr. Negrete. Feels that patient requires a facility with infectious disease given her recent history. She would recommend transfer as we do not have that specialty. 150 - Discussed with Dr. Fabian Trevino (Infectious Disease, [facility]) - He agrees with our antibiotic regiment. He also agrees that 1 set of cultures to be drawn from the port which he knows that I have ordered. He reports he is on- call for the whole week and would be able to see the patient if transferred at [facility]. However he states he would also be willing to speak with our hospitalist here regarding management of the patient should they have any questions that arise. His cell phone number is [phone]. 1510 - D/W Dr. Negrete. Reviewed my conversation with infectious disease at [facility] including their willingness to speak over the phone regarding this patient.She will speak with the nursing machine setter supervisor to try and admit the patient here Working with our current bed/staff availability. Departure - Departure Disposition: 66 [facility] DC/Xfer Clinical Impression: Neutropenic fever, Weakness Condition: Fair Forms: PCP List
[2023-08-28 13:15] LABS: ALBUMIN 3.3 g/dL (3.2-5.5); ALBUMIN/GLOBULIN RATIO 1.2 (1.0-2.2); ALKALINE PHOSPHATASE 70 IU/L (42-121); ALT ALANINE AMINOTRANSFERASE 8 IU/L (10-60); AST ASPARTATE AMINOTRANSFERASE 9 IU/L (10-42); BILIRUBIN,TOTAL 0.4 mg/dL (0.2-1.0); BUN - BLOOD UREA NITROGEN 7 mg/dL (6-20); CALCIUM 9.7 mg/dL (8.5-10.3); CARBON DIOXIDE - CO2 26 mmol/L (21-32); CHLORIDE 100 mmol/L (101-111); CREATININE 0.4 mg/dL (0.6-1.3); GFR - MDRD 156 (>89); GLUCOSE 101 mg/dL (74-104); LIPASE < 10 U/L (11-82); POTASSIUM 3.3 mmol/L (3.5-4.5); SODIUM 133 mmol/L (135-145); TOTAL PROTEIN 6.1 g/dL (6.4-8.9)
[2023-08-28] MEDS ORDERED: CEFEPIME 2 GM in SODIUM CHLORIDE 0.9% MINIBAG 100 ML IV STA (13:22)
--- NOTE | 2023-08-28 13:22 | XRAY Report ---
PROCEDURE: Chest 1 View X-Ray INDICATIONS: fever TECHNIQUE: One view of the chest was acquired. COMPARISON: Correlation is made with CT, 01/15/2022 FINDINGS: Surgical changes and devices: There is a left-sided chest port, with the tip overlying the superior aspect of the superior vena cava. Lungs and pleura: Low lung volumes can be seen, causing a crowded appearance to the lung markings. M ild interstitial prominence is seen. No pneumothorax or large pleural effusion can be seen. Mediastinum: Mediastinal contours appear normal. Heart size is normal. Bones and chest wall: No suspicious bony lesions. Age-appropriate degenerative changes are seen. O verlying soft tissues appear unremarkable. IMPRESSION: Low lung volumes with mild interstitial prominence. Please consider artifact versus mild pulmonary ed summer. Bilateral interstitial infiltrates are possible, yet considered to be less likely. Please consider a short-term follow-up 2 view chest series (performed in deep inspiration) for furthe r evaluation. Reviewed by: Inocente Mejía MD on 08/28/2023 12:20 PM [facility] Approved by: Inocente Mejía MD on 08/28/2023 12:20 PM [facility] Station ID: [id number]
[2023-08-28] MEDS ORDERED: VANCOMYCIN INJ 1.25 GM in SODIUM CHLORIDE 0.9% 250 ML IV STA (13:23)
[2023-08-28 13:30] LABS: ABNORMAL LYMPHS % (MANUAL) 3 %; BASOPHILS % (MANUAL) 3 %; DIFFERENTIAL COMMENT MANUAL DIFFERENTIAL; LYMPHOCYTES # (MANUAL) 0.6 10^3/uL (1.5-3.5); LYMPHOCYTES % (MANUAL) 59 %; METAMYELOCYTES % (MANUAL) 1 %; MONOCYTES # (MANUAL) 0.3 10^3/uL (0.0-1.0); PLATELET ESTIMATE, MANUAL DECREASED (<130,000) (NORMAL); PLATELET MORPHOLOGY 1+ LARGE PLATELETS (NORMAL); RBC MORPHOLOGY (MULTIPLE) NORMAL APPEARANCE (NORMAL); WBC MORPHOLOGY (MULTIPLE) NORMAL APPEARANCE (NORMAL)
[2023-08-28 13:41] LABS: BILIRUBIN,URINE NEGATIVE (NEGATIVE); CLARITY,URINE CLEAR (CLEAR); GLUCOSE, URINE (UA) NEGATIVE (NEGATIVE); KETONES,URINE (UA) TRACE mg/dL (NEGATIVE); LEUKOCYTE ESTERASE, URINE NEGATIVE (NEGATIVE); NITRITE,URINE NEGATIVE (NEGATIVE); OCCULT BLOOD,URINE NEGATIVE (NEGATIVE); PH,URINE 6.5 PH (5.0-7.5); PROTEIN,URINE TRACE mg/dL (NEGATIVE); UROBILINOGEN,URINE 1 (NORMAL) E.U./dL (NORMAL)
[2023-08-28 13:53] LABS: B. PARAPERTUSSIS- RESP PCR PAN NOT DETECTED; B. PERTUSSIS- RESP PCR PANEL NOT DETECTED; C. PNEUMONIAE- RESP PCR PANEL NOT DETECTED; CORONAVIRUS 229E-RESP PCR NOT DETECTED; CORONAVIRUS HKU1-RESP PCR NOT DETECTED; CORONAVIRUS NL63-RESP PCR NOT DETECTED; CORONAVIRUS OC43-RESP PCR NOT DETECTED; HUMAN METAPNEUMOVIRUS NOT DETECTED; INFLUENZA A- RESP PCR PANEL NOT DETECTED; INFLUENZA B - RESP PCR PANEL NOT DETECTED; M. PNEUMONIAE- RESP PCR PANEL NOT DETECTED; PARAINFLUENZA VIRUS 1 NOT DETECTED; PARAINFLUENZA VIRUS 2 NOT DETECTED; PARAINFLUENZA VIRUS 3 NOT DETECTED; PARAINFLUENZA VIRUS 4 NOT DETECTED; RHINOVIRUS/ENTEROVIRUS NOT DETECTED; RSV- RESP PCR PANEL NOT DETECTED; SARS-CoV-2 -RESP PCR PANEL NOT DETECTED
[2023-08-28] MEDS ORDERED: oxyCODONE 5 MG TABLET PO STA (14:44)
[2023-08-28] MEDS ORDERED: SODIUM CHLORIDE FLUSH 0.9% 10 ML SYRINGE IVP PRN (16:19)
[2023-08-28] MEDS ORDERED: POTASSIUM CHLOR 10 MEQ/100 ML 10 MEQ/100 ML BAG IV ONE (16:29)
--- NOTE | 2023-08-28 16:38 | HISTORY & PHYSICAL EXAMINATION ---
Chief Complaint - Chief Complaint Chief Complaint: fever at home and weakness History of Present Illness - Admitted From Admitted From:: ED - History Obtained From History obtained from: ED provider and the patient - History of Present Illness HPI Comment/Other: This is a 73-year-old female with a history of lung cancer with brain mets. She has a port in place and gets chemotherapy. She was admitted to [facility] a month ago for neutropenic fever for which she received IV antibiotics for 2 weeks, then Infectious Disease cleared her port to be used again and she had chemotherapy done 10 days ago. She felt all right after chemo until today when she developed weakness. The daughter measured her temperature and noted a fever of 101.6 at home. She was too weak to get into the car to be transported to the hospital so EMS was called. EMS also obtained a fever, temp was 102. In the ER, work-up shows absolute neutrophil count of 0, White blood count of 0.9, platelet count of 101K. Sodium 133, Potassium 3.7. Chest x-ray was a poor inspiratory film. The port site appeared clean with no redness or tenderness. The ED provider spoke to me about this patient for admission and I advised that the [facility] Infectious Disease provider be contacted first, for recommendations and to have the patient preferably transferred to [facility] for care. [facility] had no open beds. The ED provider spoke to the Infectious Disease doctor on-call, who said that the patient could be hospitalized here and that he would be available every day this upcoming week for consultation. The patient had blood cultures drawn while in the ER, including 1 culture drawn from her port. She received IV cefepime and IV vancomycin. The ED provider then spoke to me again and this patient will be admitted to the Hospitalist team to manage neutropenic fever. At the bedside, the patient is minimally communicative, is weak, requesting a warm blanket. She denies any pain anywhere. History - Past Medical History Cardiovascular: reports: Hypertension, High cholesterol Respiratory: reports: Shortness of breath, Sleep apnea, Other (Lung cancer with brain mets, on chemo) Endocrine/Autoimmune: reports: HyPOthyroidism GI: reports: None : reports: None HEENT: reports: None Psych: reports: None Musculoskeletal: reports: Osteoarthritis, Chronic back pain Derm: reports: None MRSA Hx?: No - Past Surgical History General: reports: Appendectomy, Other (Port in chest) Ortho: reports: Knee replacement, Carpal Tunnel surgery, Other HEENT: reports: Tonsil/Adenoidectomy - Family & Social History Living arrangement: At home Living Situation: With family Social History Notes: Not a smoker currently, no alcohol use - Substance History Use: Uses substance without health or social issues: NONE Meds/Allgy - Home Medications Home Medications: Ambulatory Orders Medication Instructions Recorded Confirmed Ascorbic Acid [Vitamin C] 1,000 mg PO DAILY 11/01/14 11/16/21 Cholecalciferol (Vitamin D3) 1,000 unit PO DAILY 11/01/14 11/16/21 [Vitamin D] Multivit with Calcium,Iron,Min 1 each PO DAILY 11/01/14 11/16/21 [Multiple Vitamins For Women] Magnesium 1 tab PO DAILY 11/04/14 11/17/21 Levothyroxine [Synthroid] 100 mcg PO DAILY 11/16/21 11/16/21 amLODIPine [Norvasc] 2.5 mg PO DAILY 11/16/21 11/17/21 hydroCHLOROthiazide 25 mg PO DAILY 11/16/21 11/16/21 [Hydrochlorothiazide] Acetaminophen [Tylenol Arthritis] 1,300 mg PO DAILY PM PRN 11/17/21 11/17/21 Ibuprofen 400 mg PO DAILY PM PRN 11/17/21 11/17/21 Melatonin/Pyridoxine [Melatonin 5 10 mg PO DAILY PM 11/17/21 11/17/21 mg Tablet] - Allergies Allergies/Adverse Reactions: Allergies Allergy/AdvReac Type Severity Reaction Status Date / Time atorvastatin AdvReac Unknown Verified 08/28/23 12:28 Review of Systems - Constitutional Constitutional: reports: Fever, Weakness - All Other Systems All Other Systems: reports: Reviewed and negative Exam - Vital Signs Vital Signs: Vital Signs x48h Temp Pulse Resp BP Pulse Ox 08/28/23 12:36 37.5 C 91 20 131/70 H 92 08/28/23 12:28 37.5 C 91 20 131/70 H 92 - Physical Exam General Appearance: positive: Lethargic, Other (Alopecia. Obese female, appears older than age.) Eyes Bilateral: positive: Normal inspection, EOMI, No lid inflammation ENT: positive: ENT inspection nml, No signs of dehydration Neck: positive: Nml inspection, No JVD Respiratory: positive: No respiratory distress, Breath sounds nml Cardiovascular: positive: Regular rate & rhythm, No murmur Abdomen: positive: Non-tender, Nml bowel sounds, No distention Skin: positive: Warm, Dry Extremities: positive: Non-tender, No pedal edema Neurologic/Psychiatric: positive: CN's nml (2-12), Other (Lethargic, moving all extrem spontaneously, minimally communicative.) Sepsis Event Note (H) - Evaluation Current Stage of Sepsis: Ruled out Conclusion/Plan - Problem List (1) Neutropenic fever Conclusion/Plan: Likely from the recent chemotherapy Plan: I will order neutropenic precautions and a neutropenic diet Follow her WBC daily Continue empiric antibiotics, using cefepime and Vanco Await culture results to tailor antibiotics Treat her fever symptomatically. Dr. Fabian Tomas (Infectious Disease, [facility]) agreed to be available to speak with us regarding management of this patient. His cell phone number is [phone]. (2) Lung cancer metastatic to brain Conclusion/Plan: As per Hx Plan: Await reconciled med list to resume any meds other than chemo (3) Pancytopenia due to chemotherapy Conclusion/Plan: Plan: Follow CBC daily Blood transfusion planned if Hgb less than 7 Platelet transfusion planned if platelet count less than 10 or if she is bleeding and platelet count is less than 30 (4) Weakness Conclusion/Plan: This is likely multifactorial: From the fever, from the anemia, from abnormal electrolytes, from having underlying cancer Plan: We will order IV fluids Supportive, symptomatic care (5) Hyponatremia Conclusion/Plan: This is likely hypovolemic hyponatremia given her fever and likely fluid losses Plan: Give fluids that contain NS Follow her serum sodium every 12 hours to prevent over rapid correction, plan for improving sodium 6 to 8 mEq over 24-hours (6) Hypokalemia Conclusion/Plan: Likely from inadequate oral intake Plan: Give IV hydration that contains potassium We will also order additional K riders Follow BMP daily (7) SASCHA (obstructive sleep apnea) Conclusion/Plan: I will order her CPAP device to use here if she uses one - Lab Results Fish Bones: 08/28/23 12:53 08/28/23 12:53 - Diagnostic Imaging Results Diagnostic Imaging Results: positive: Final report reviewed - Other Other Results/Comments: Attestation: The patient is expected to be hospitalized for greater than 2 midnights and is expected to be discharged or transferred to another facility within 96 hours: Yes.
[2023-08-28] MEDS: VANCOMYCIN INJ 1 GM, VANCOMYCIN INJ 500 MG in SODIUM CHLORIDE 0.9% 500 ML IV SCH (17:20)
[2023-08-28] MEDS: D5NS W/20 MEQ KCL 1,000 ML IV SCH (18:54)
[2023-08-28] MEDS: SODIUM CHLORIDE FLUSH 0.9% 10 ML SYRINGE IVP SCH ×2 (18:59→23:30)
[2023-08-28] MEDS ORDERED: CEFEPIME 2 GM in SODIUM CHLORIDE 0.9% MINIBAG 100 ML IV SCH (21:00)
[2023-08-28] MEDS: oxyCODONE 5 MG TABLET PO PRN (21:55)
[2023-08-29 05:15] LABS: BASOPHILS % (AUTO) 1.4 %; EOSINOPHILS % (AUTO) 2.9 %; HCT - HEMATOCRIT 23.7 % (37.0-47.0); MEAN CORPUSCULAR HEMOGLOBIN 31.7 pg (27.0-31.0); MEAN CORPUSCULAR HGB CONC 33.8 g/dL (32.0-36.0); MEAN PLATELET VOLUME 9.8 fL (7.9-10.8); MONOCYTES % (AUTO) 49.3 %; NEUTROPHILS % (AUTO) 8.5 %; PLT - PLATELET COUNT 115 10^3/uL (130-450); RED BLOOD COUNT 2.52 10^6/uL (4.20-5.40); RED CELL DISTRIBUTION WIDTH 15.7 % (12.0-15.0)
[2023-08-29 05:29] LABS: CALCIUM 8.8 mg/dL (8.5-10.3); CREATININE 0.4 mg/dL (0.6-1.3); PHOSPHORUS 2.2 mg/dL (2.5-5.0); POTASSIUM 3.3 mmol/L (3.5-4.5)
[2023-08-29] MEDS: ACETAMINOPHEN 325 MG TABLET PO PRN (05:29)
[2023-08-29] MEDS: VANCOMYCIN INJ 1 GM, VANCOMYCIN INJ 500 MG in SODIUM CHLORIDE 0.9% 500 ML IV SCH ×2 (05:29→17:00)
[2023-08-29] MEDS: oxyCODONE 5 MG TABLET PO PRN ×3 (05:30→21:15)
[2023-08-29 06:53] LABS: MAGNESIUM 1.3 mg/dL (1.7-2.3)
[2023-08-29 06:59] LABS: WHITE BLOOD COUNT 1.4 x10^3/uL (4.8-10.8)
[2023-08-29 07:11] LABS: ABNORMAL LYMPHS % (MANUAL) 0 %; BAND NEUTROPHILS % (MANUAL) 0 %
[2023-08-29 07:13] LABS: LYMPHOCYTES # (MANUAL) 0.6 10^3/uL (1.5-3.5); LYMPHOCYTES % (MANUAL) 32 %; MONOCYTES # (MANUAL) 0.7 10^3/uL (0.0-1.0); NEUTROPHILS # (MANUAL) 0.1 10^3/uL (1.5-6.6); PLATELET ESTIMATE, MANUAL DECREASED (<130,000) (NORMAL); RBC MORPHOLOGY (MULTIPLE) 4+ ANISOCYTOSIS (NORMAL); REACTIVE LYMPHS % (MANUAL) 8 %
[2023-08-29 07:14] LABS: DIFFERENTIAL COMMENT MANUAL DIFFERENTIAL
[2023-08-29] MEDS ORDERED: MAGNESIUM SULFATE 2 GRAM 2 GM/50 ML BAG IV ONE (08:09)
[2023-08-29] MEDS ORDERED: POTASSIUM PHOSPHATE 15 MMOL in SODIUM CHLORIDE 0.9% 250 ML IV ONE (09:00)
--- NOTE | 2023-08-29 09:00 | PROVIDER PROGRESS NOTE ---
Assessment/Plan - Problem List (1) Neutropenic fever Assessment/Plan: Likely from the recent chemotherapy. All labs were reviewed. Yesterday WBC was 0.9 and today WBC maldonado to 1.4. Yesterday ANC was 0, today ANC is 100 Plan: Cont neutropenic precautions and a neutropenic diet Follow her WBC daily Continue empiric antibiotics, using Cefepime and Vanco Await culture results to tailor antibiotics Treat her fever symptomatically. Dr. Fabian Tomas (Infectious Disease, [facility]) agreed to be available to speak with us regarding management of this patient, since we have no ID specialty here. His cell phone number is [phone]. (2) Lung cancer metastatic to brain Conclusion/Plan: As per Hx Plan: Await reconciled med list to resume any meds other than chemo I will urge smoking cessation, given her lung cancer (3) Pancytopenia due to chemotherapy Conclusion/Plan: Plan: Follow CBC daily Blood transfusion planned if Hgb less than 7 Platelet transfusion planned if platelet count less than 10 or if she is bleeding and platelet count is less than 30 (4) Thrush Conclusion/Plan: Commonly seen with chemotherapy Plan: We will order nystatin swish and swallow 4 times daily (5) Weakness Conclusion/Plan: This is likely multifactorial: From the fever, from the anemia, from abnormal electrolytes, from having underlying cancer. She is already more awake and alert today Plan: PT and OT evals ordered (6) Hyponatremia Conclusion/Plan: This is likely hypovolemic hyponatremia given her fever and likely fluid losses All labs were reviewed. Sodium was 133 at admission, 133 overnight and 134 this morning Plan: Cont fluids that contain NS Follow her serum sodium every 12 hours to prevent over rapid correction, plan for improving sodium 6 to 8 mEq over 24-hours (7) Hypokalemia Conclusion/Plan: Likely from inadequate oral intake Plan: Give IV hydration that contains potassium We will also order additional K riders Follow BMP daily (8) SASCHA (obstructive sleep apnea) Conclusion/Plan: I ordered her CPAP device to use here if she uses one (9) Tobacco use Conclusion/Plan: Overnight, the telemedicine doctor was called because the patient had an urge for smoking a cigarette. Family described that she smokes 10 cigarettes/day Plan: I will urge smoking cessation, given her lung cancer Continue Nicotine patch topically daily (10) Chronic pain Plan: I will resume all her usual home meds that were today reconciled by pharmacy - Current Meds Current Meds: Current Medications Generic Name Dose Route Start Last Admin Trade Name Naomi PRN Reason Stop Dose Admin Acetaminophen 650 mg 08/28/23 16:19 08/29/23 05:29 Acetaminophen 325 Mg Tablet PO 650 mg Q4HR PRN Administration Pain 1 to 4, or Fever Potassium Chloride/Dextrose/Sod Cl 1,000 mls @ 80 mls/hr 08/28/23 17:00 08/28/23 18:54 D5ns W/20 Meq Kcl IV 80 mls/hr .[id number] GLORIA Administration Cefepime HCl 2 gm/ Sodium 100 mls @ 200 mls/hr 08/28/23 21:00 08/28/23 22:27 Chloride IV Infused BID GLORIA Infusion Vancomycin HCl 1 gm/ 500 mls @ 250 mls/hr 08/28/23 17:00 08/29/23 05:29 Vancomycin HCl 500 mg/ Sodium IV 250 mls/hr Chloride Q12H GLORIA Administration Oxycodone HCl 5 mg 08/28/23 20:45 08/29/23 05:30 Oxycodone 5 Mg Tablet PO 5 mg Q6HR PRN Administration Moderate Pain (Level 4-6) Sodium Chloride 10 ml 08/28/23 17:00 08/28/23 23:30 Sodium Chloride Flush 0.9% 10 Ml Syringe IVP Not Given 0100,0900,1700 GLORIA - Lab Result Fish Bone Diagrams: 08/29/23 04:52 08/29/23 04:52 - Additional Planning My Orders: My Active Orders 08/28/23 Dinner Neutropenic (Low Microbial) Diet [DIET] 08/28/23 16:19 Activity Orders [RC] Q2HR IO [RC] IOSHIFT Incentive Spirometry - RT [RC] TID Initiate Bowel Care Protocol [RC] .protocol Initiate Line Care Protocol [RC] QSHIFT Initiate Personal Care Protoco [RC] .protocol Oxygen Therapy [RC] .PRN Vital Signs [RC] Q4HR Acetaminophen [Tylenol] 650 mg PO Q4HR PRN Ondansetron Inj [Zofran Inj] 4 mg IVP Q6HR PRN Sodium Chloride Flush 0.9% [Normal Saline Flush 0.9%] 10 ml IVP PRN PRN Code Status [OTHERS] Routine Condition of Patient [OTHERS] Routine DVT Prophylaxis [OTHERS] Routine 08/28/23 16:21 Daily Weight [RC] 0600 IV Insert [RC] .ONCE Initiate Line Care Protocol [RC] [facility] SCDs [RC] [facility] 08/28/23 16:22 Neutropenic Management [RC] [facility] 08/28/23 16:23 Miscellaenous Nursing Order [RC] [facility] 08/28/23 17:00 D5ns W/20 Meq KCl 1,000 ml IV 80 mls/hr Sodium Chloride Flush 0.9% [Normal Saline Flush 0.9%] 10 ml IVP 0100,0900,1700 Vancomycin Inj [Vancomycin] 1 gm Vancomycin Inj [Vancomycin Hcl] 500 mg Sodium Chloride 0.9% [Normal Saline 0.9%] 500 ml IV Q12H 08/28/23 19:14 Home CPAP/BiPAP [RC] .ONCE 08/28/23 21:00 Cefepime 2 gm Sodium Chloride 0.9% Minibag [Normal Saline 0.9% Minibag] 100 ml IV BID 08/29/23 Evaluate and Treat OT [OT] Routine Evaluate and Treat PT [PT] Routine 08/29/23 08:09 Magnesium Sulfate 2 Gram [Magnesium Sulfate] 2 gm in 50 ml IV ONCE 08/29/23 08:11 Vital Signs- Do Not Awaken For [RC] HS 08/29/23 09:00 Nystatin [Mycostatin] 5 ml PO QID Potassium Phosphate 15 mmol Sodium Chloride 0.9% [Normal Saline 0.9%] 250 ml IV Q4H 08/30/23 05:00 BMP - BASIC METABOLIC PANEL [CHEM] DAILYLAB CBC - COMP BLD CT W/AUTO DIFF [HEME] DAILYLAB 08/31/23 05:00 BMP - BASIC METABOLIC PANEL [CHEM] DAILYLAB CBC - COMP BLD CT W/AUTO DIFF [HEME] DAILYLAB 09/01/23 05:00 BMP - BASIC METABOLIC PANEL [CHEM] DAILYLAB CBC - COMP BLD CT W/AUTO DIFF [HEME] DAILYLAB 09/02/23 05:00 BMP - BASIC METABOLIC PANEL [CHEM] DAILYLAB CBC - COMP BLD CT W/AUTO DIFF [HEME] DAILYLAB Subjective - Subjective Patient Reports: Feeling Better (She says she remembers nothing about yesterday, does not remember meeting me.), Pain (Has pain in L arm from iv, she said, to her RN she c/o both legs and both arms, she rates it 5/10, said it is chronic, she takes narcotics for it at home and is requesting stronger meds here) Objective Vital Signs: Vital Signs - 24 hr 08/28/23 08/28/23 08/28/23 12:28 12:36 17:06 Temperature 37.5 C 37.5 C Heart Rate 91 91 88 Heart Rate [ Apical] Heart Rate [ Brachial] Respiratory 20 20 22 Rate Blood Pressure 131/70 H 131/70 H 131/85 H Blood Pressure [Right Brachial artery] O2 Saturation 92 92 94 If not protocol : Oxygen Flow, liters/minute 08/28/23 08/28/23 08/29/23 18:23 23:32 00:10 Temperature 37.5 C 37.3 C Heart Rate Heart Rate [ 92 Apical] Heart Rate [ 86 Brachial] Respiratory 20 18 Rate Blood Pressure Blood Pressure 132/68 H 104/66 [Right Brachial artery] O2 Saturation 92 88 L 96 If not protocol 2 : Oxygen Flow, liters/minute 08/29/23 07:00 Temperature Heart Rate Heart Rate [ Apical] Heart Rate [ Brachial] Respiratory Rate Blood Pressure Blood Pressure [Right Brachial artery] O2 Saturation If not protocol 2 : Oxygen Flow, liters/minute Oxygen O2 Source Nasal cannula I&O (Last 24 Hrs): Intake and Output Totals x24h 08/28/23 08/28/23 08/29/23 00:59 23:59 23:59 Intake Total Output Total 100 Balance -100 General: Alert, Oriented x3, Other (Alopecia and has blanket wrapped around her head) HEENT: Mucous membr. moist/pink, Other (dry mucosa) Neck: Supple Neuro: Alert, Non Focal Cardiovascular: Regular rate, No murmurs (Distant heart sounds, due to obesity) Respiratory: No respiratory distress, Breath sounds nml Abdomen: Normal bowel sounds, Soft, Other (Obese) Extremities: No clubbing, No edema, No tenderness/swelling - Results Results: Laboratory Results WBC 1.4 x10^3/uL (4.8-10.8) L* 08/29/23 04:52 RBC 2.52 10^6/uL (4.20-5.40) L 08/29/23 04:52 Hgb 8.0 g/dL (12.0-16.0) L 08/29/23 04:52 Hct 23.7 % (37.0-47.0) L 08/29/23 04:52 MCV 94.0 fL (81.0-99.0) 08/29/23 04:52 MCH 31.7 pg (27.0-31.0) H 08/29/23 04:52 MCHC 33.8 g/dL (32.0-36.0) 08/29/23 04:52 RDW 15.7 % (12.0-15.0) H 08/29/23 04:52 Plt Count 115 10^3/uL (130-450) L 08/29/23 04:52 MPV 9.8 fL (7.9-10.8) 08/29/23 04:52 Neut # (Auto) Not Reportable 08/29/23 04:52 Lymph # (Auto) Not Reportable 08/29/23 04:52 [place] # (Auto) Not Reportable 08/29/23 04:52 Eos # (Auto) Not Reportable 08/29/23 04:52 Baso # (Auto) Not Reportable 08/29/23 04:52 Absolute Nucleated RBC Not Reportable 08/29/23 04:52 Total Counted 50 08/29/23 04:52 Band Neuts % (Manual) 0 % (0-10) 08/29/23 04:52 Reactive Lymphs % (Man) 8 % 08/29/23 04:52 Abnorm Lymph % (Manual) 0 % 08/29/23 04:52 Metamyelocytes % 1 % (-0) H 08/28/23 12:53 Nucleated RBC % Not Reportable 08/29/23 04:52 Neutrophils # (Manual) 0.1 10^3/uL (1.5-6.6) L* 08/29/23 04:52 Lymphocytes # (Manual) 0.6 10^3/uL (1.5-3.5) L 08/29/23 04:52 Monocytes # (Manual) 0.7 10^3/uL (0.0-1.0) 08/29/23 04:52 Eosinophils # (Manual) 0.0 10^3/uL (0-0.7) 08/29/23 04:52 Basophils # (Manual) 0.0 10^3/uL (0-0.1) 08/29/23 04:52 Differential Comment MANUAL DIFFERENTIAL 08/29/23 04:52 WBC Morphology NORMAL APPEARANCE (NORMAL) 08/28/23 12:53 Platelet Estimate DECREASED (<130,000) (NORMAL) 08/29/23 04:52 Platelet Morphology 1+ LARGE PLATELETS (NORMAL) 08/28/23 12:53 RBC Morph Micro Appear 4+ ANISOCYTOSIS (NORMAL) 08/29/23 04:52 Sodium 134 mmol/L (135-145) L 08/29/23 04:52 Potassium 3.3 mmol/L (3.5-4.5) L 08/29/23 04:52 Chloride 105 mmol/L (101-111) 08/29/23 04:52 Carbon Dioxide 26 mmol/L (21-32) 08/29/23 04:52 Anion Gap 3.0 (6-13) L 08/29/23 04:52 BUN 8 mg/dL (6-20) 08/29/23 04:52 Creatinine 0.4 mg/dL (0.6-1.3) L 08/29/23 04:52 Estimated GFR (MDRD) 156 (>89) 08/29/23 04:52 Glucose 105 mg/dL (74-104) H 08/29/23 04:52 Lactic Acid 0.8 mmol/L (0.5-2.2) 08/28/23 12:53 Calcium 8.8 mg/dL (8.5-10.3) 08/29/23 04:52 Phosphorus 2.2 mg/dL (2.5-5.0) L 08/29/23 04:52 Magnesium 1.3 mg/dL (1.7-2.3) L 08/29/23 04:52 Total Bilirubin 0.4 mg/dL (0.2-1.0) 08/28/23 12:53 AST 9 IU/L (10-42) L 08/28/23 12:53 ALT 8 IU/L (10-60) L 08/28/23 12:53 Alkaline Phosphatase 70 IU/L (42-121) 08/28/23 12:53 Total Protein 6.1 g/dL (6.4-8.9) L 08/28/23 12:53 Albumin 3.3 g/dL (3.2-5.5) 08/28/23 12:53 Globulin 2.8 g/dL (2.1-4.2) 08/28/23 12:53 Albumin/Globulin Ratio 1.2 (1.0-2.2) 08/28/23 12:53 Lipase < 10 U/L (11-82) L 08/28/23 12:53 Urine Color YELLOW 08/28/23 13:21 Urine Clarity CLEAR (CLEAR) 08/28/23 13:21 Urine pH 6.5 PH (5.0-7.5) 08/28/23 13:21 Ur Specific [place] 1.020 (1.002-1.030) 08/28/23 13:21 Urine Protein TRACE mg/dL (NEGATIVE) 08/28/23 13:21 Urine Glucose (UA) NEGATIVE mg/dL (NEGATIVE) 08/28/23 13:21 Urine Ketones TRACE mg/dL (NEGATIVE) 08/28/23 13:21 Urine Occult Blood NEGATIVE (NEGATIVE) 08/28/23 13:21 Urine Nitrite NEGATIVE (NEGATIVE) 08/28/23 13:21 Urine Bilirubin NEGATIVE (NEGATIVE) 08/28/23 13:21 Urine Urobilinogen 1 (NORMAL) E.U./dL (NORMAL) 08/28/23 13:21 Ur Leukocyte Esterase NEGATIVE (NEGATIVE) 08/28/23 13:21 Ur Microscopic Review NOT INDICATED 08/28/23 13:21 Urine Culture Comments NOT INDICATED 08/28/23 13:21 Nasal Adenovirus (PCR) NOT DETECTED 08/28/23 12:40 Nasal B. parapertussis DNA (PCR) NOT DETECTED 08/28/23 12:40 Nasal Coronavir 229E PCR NOT DETECTED 08/28/23 12:40 Nasal Coronavir HKU1 PCR NOT DETECTED 08/28/23 12:40 Nasal Coronavir NL63 PCR NOT DETECTED 08/28/23 12:40 Nasal Coronavir OC43 PCR NOT DETECTED 08/28/23 12:40 Nasal Enterovir/Rhinovir PCR NOT DETECTED 08/28/23 12:40 Nasal Influenza B PCR NOT DETECTED 08/28/23 12:40 Nasal Influenza A PCR NOT DETECTED 08/28/23 12:40 Nasal Parainfluen 1 PCR NOT DETECTED 08/28/23 12:40 Nasal Parainfluen 2 PCR NOT DETECTED 08/28/23 12:40 Nasal Parainfluen 3 PCR NOT DETECTED 08/28/23 12:40 Nasal Parainfluen 4 PCR NOT DETECTED 08/28/23 12:40 Nasal RSV (PCR) NOT DETECTED 08/28/23 12:40 Nasal B.pertussis DNA PCR NOT DETECTED 08/28/23 12:40 Nasal C.pneumoniae (PCR) NOT DETECTED 08/28/23 12:40 [place] Human Metapneumo PCR NOT DETECTED 08/28/23 12:40 Nasal M.pneumoniae (PCR) NOT DETECTED 08/28/23 12:40 Nasal SARS-CoV-2 (PCR) NOT DETECTED 08/28/23 12:40 - Procedures Procedures: Procedures ENDOSC POLYPECTOMY OF LG INTEST (11/04/14) EXCISION OF ASCENDING COLON, ENDO, DIAGN (11/17/21) EXCISION OF RECTUM, ENDO, DIAGN (11/17/21) EXCISION OF SIGMOID COLON, ENDO, DIAGN (11/17/21) Sepsis Event Note (H) - Evaluation Current Stage of Sepsis: Ruled out
[2023-08-29] MEDS: NICOTINE 14 MG PATCH TOP SCH (09:44)
[2023-08-29] MEDS: NYSTATIN 500000 UNITS/5 ML UDC PO SCH ×4 (09:45→20:00)
[2023-08-29] MEDS: SODIUM CHLORIDE FLUSH 0.9% 10 ML SYRINGE IVP SCH ×3 (09:47→23:59)
[2023-08-29] MEDS: ONDANSETRON 4 MG/2 ML VIAL IVP PRN (12:08)
--- NOTE | 2023-08-29 12:25 | PHARMACY PROGRESS NOTE ---
- Best Possible Medication History Admit Date and Time: 08/28/23 1619 Processed by: Pharmacy Medication History completed: Yes Patient Interview: Completed Secondary Source(s): Spouse/Significant other, Pharmacy records, Insurance records As the person ultimately responsible for medication therapy, providers are able to order a medication from an existing home medication list in [facility] via the "Reconcile Routine" prior to Confirmation of that medication by faculty support coordinator. Such practice is discouraged except when the physician, in their clinical judgment, deems that a medical need exists for a medication without regard to previous use.
--- NOTE | 2023-08-29 13:58 | PHARMACY PROGRESS NOTE ---
- Therapy Status Vancomycin regimen day #: 2 Therapy status: Awaiting steady state Basis for treatment: Empirical Treatment indication: NEUTROPENIC FEVER Trough goal: AUC: 400-600 Concurrent antibiotics: CEFEPIME 2G Q12H - ALFRED Risk Risk level for Acute Kidney Injury: Low Acute Kidney Injury risk factors: Duration >7 days - Monitoring and Recommendation Clinical response to treatment: I&O Previous 24 hours 08/28/23 08/28/23 08/29/23 00:59 23:59 23:59 Intake Total 1320 Output Total 200 Balance 1120 Lab Results 08/29/23 08/28/23 04:52 12:53 BUN 8 7 Creatinine 0.4 L 0.4 L Estimated GFR (MDRD) 156 156 Cultures 08/28/23 12:53 Blood - Left Hand Blood Culture - Preliminary NO GROWTH AFTER 1 DAY 08/28/23 12:53 Blood - Right Arm Blood Culture - Preliminary NO GROWTH AFTER 1 DAY 08/28/23 13:21 Urine,Clean Catch Urine Culture - Preliminary CULTURE IN PROGRESS. RESULTS TO FOLLOW. Monitoring plan: Draw trough early (LABS ORDER TO ACCESS VANCOMYCIN DOSED WITHIN THERAPUTIC RANGE. PEAK AFTER THIRD DOSE AND TROUGH BEFORE FORTH DOSE ORDERED TO UTILIZE BAYESIAN DOSING CALCULATION) Pharmacy recommendation: Continue current regime
[2023-08-29] MEDS: CEFEPIME 2 GM in SODIUM CHLORIDE 0.9% MINIBAG 100 ML IV SCH ×2 (14:02→23:59)
[2023-08-29] MEDS: POTASSIUM CHLOR 10 MEQ/100 ML 10 MEQ/100 ML BAG IV SCH ×2 (15:09→16:32)
[2023-08-29] MEDS: D5NS W/20 MEQ KCL 1,000 ML IV SCH ×2 (16:32→23:58)
[2023-08-29] MEDS ORDERED: oxyCODONE 5 MG TABLET PO PRN (17:01)
[2023-08-29] MEDS ORDERED: IBUPROFEN 600 MG TABLET PO PRN (17:04)
[2023-08-29] MEDS: traMADol 50 MG TABLET PO PRN (17:14)
[2023-08-29] MEDS: OLANZapine ODT 5 MG TABLET TL SCH (20:00)
[2023-08-30] MEDS: D5NS W/20 MEQ KCL 1,000 ML IV SCH ×2 (05:49→20:38)
[2023-08-30] MEDS: oxyCODONE 5 MG TABLET PO PRN ×2 (05:50→13:35)
[2023-08-30 05:57] LABS: BASOPHILS % (AUTO) 0.9 %; EOSINOPHILS % (AUTO) 3.1 %; HCT - HEMATOCRIT 25.2 % (37.0-47.0); HGB - HEMOGLOBIN 8.4 g/dL (12.0-16.0); LYMPHOCYTES % (AUTO) 20.6 %; MEAN CORPUSCULAR HEMOGLOBIN 31.3 pg (27.0-31.0); MEAN CORPUSCULAR HGB CONC 33.3 g/dL (32.0-36.0); MEAN PLATELET VOLUME 9.3 fL (7.9-10.8); MONOCYTES % (AUTO) 44.7 %; NEUTROPHILS % (AUTO) 18.9 %; PLT - PLATELET COUNT 148 10^3/uL (130-450); RED BLOOD COUNT 2.68 10^6/uL (4.20-5.40); RED CELL DISTRIBUTION WIDTH 15.7 % (12.0-15.0); WHITE BLOOD COUNT 2.3 x10^3/uL (4.8-10.8)
[2023-08-30 06:02] LABS: VANCOMYCIN,TROUGH 16.6 ug/mL
[2023-08-30] MEDS: VANCOMYCIN INJ 1 GM, VANCOMYCIN INJ 500 MG in SODIUM CHLORIDE 0.9% 500 ML IV SCH (06:17)
[2023-08-30 06:18] LABS: CREATININE 0.4 mg/dL (0.6-1.3); POTASSIUM 3.7 mmol/L (3.5-4.5)
[2023-08-30 06:27] LABS: ABNORMAL LYMPHS % (MANUAL) 0 %
[2023-08-30 06:41] LABS: BAND NEUTROPHILS % (MANUAL) 3 %; DIFFERENTIAL COMMENT MANUAL DIFFERENTIAL; LYMPHOCYTES # (MANUAL) 1.1 10^3/uL (1.5-3.5); LYMPHOCYTES % (MANUAL) 46 %; METAMYELOCYTES % (MANUAL) 2 %; MONOCYTES # (MANUAL) 0.4 10^3/uL (0.0-1.0); MYELOCYTES % (MANUAL) 2 %; NEUTROPHILS # (MANUAL) 0.7 10^3/uL (1.5-6.6); PLATELET ESTIMATE, MANUAL NORMAL (130-450,000) (NORMAL); RBC MORPHOLOGY (MULTIPLE) NORMAL APPEARANCE (NORMAL)
[2023-08-30] MEDS: LEVOTHYROXINE 100 MCG TABLET PO SCH (08:54)
[2023-08-30] MEDS: amLODIPine 5 MG TABLET PO SCH (08:54)
[2023-08-30] MEDS: traMADol 50 MG TABLET PO PRN (08:54)
[2023-08-30] MEDS: NICOTINE 14 MG PATCH TOP SCH (08:54)
[2023-08-30] MEDS: NYSTATIN 500000 UNITS/5 ML UDC PO SCH ×4 (08:55→20:51)
--- NOTE | 2023-08-30 11:20 | PHARMACY PROGRESS NOTE ---
- Therapy Status Vancomycin regimen day #: 3 Therapy status: Trough therapeutic Basis for treatment: Empirical Treatment indication: NEUTROPENIC FEVER Trough goal: AUC: 400-600 Concurrent antibiotics: CEFEPIME 2G Q12H - ALFRED Risk Risk level for Acute Kidney Injury: Low Acute Kidney Injury risk factors: Duration >7 days - Monitoring and Recommendation Clinical response to treatment: I&O Previous 24 hours 08/28/23 08/29/23 08/30/23 23:59 23:59 23:59 Intake Total 2926.333 1578.667 Output Total 450 1000 Balance 2476.333 578.667 Lab Results 08/30/23 08/29/23 08/28/23 05:30 04:52 12:53 BUN 5 L 8 7 Creatinine 0.4 L 0.4 L 0.4 L Estimated GFR (MDRD) 156 156 156 Vancomycin Monitoring 08/30/23 08/29/23 05:30 20:08 Vancomycin Peak 34.0 Vancomycin Trough 16.6 Cultures 08/28/23 13:21 Urine,Clean Catch Urine Culture - Final No growth 08/28/23 15:24 Blood - Left Port Blood Culture - Preliminary NO GROWTH AFTER 1 DAY 08/28/23 12:53 Blood - Left Hand Blood Culture - Preliminary NO GROWTH AFTER 1 DAY 08/28/23 12:53 Blood - Right Arm Blood Culture - Preliminary NO GROWTH AFTER 1 DAY Monitoring plan: Daily serum creatinine Areas for additional monitoring: IV to PO when appropriate, Therapy de-escala tion based on culture results (DOSE LOWERED TO 750MG Q12H BASED ON PEAK(34) AND TROUGH(16.6) USING BAYESIAN MODELING WITH A PREDICTED THERAPEUTIC AUC/ANIA OF 552.) Pharmacy recommendation: Continue current regime
[2023-08-30] MEDS: SODIUM CHLORIDE FLUSH 0.9% 10 ML SYRINGE IVP SCH ×3 (13:29→23:51)
[2023-08-30] MEDS: CEFEPIME 2 GM in SODIUM CHLORIDE 0.9% MINIBAG 100 ML IV SCH (13:36)
--- NOTE | 2023-08-30 14:15 | PROVIDER PROGRESS NOTE ---
Assessment/Plan - Problem List (1) Neutropenic fever Assessment/Plan: (1) Neutropenic fever Patient remains on IV vancomycin and cefepime as empiric coverage for her neutropenic fever. She has been afebrile since admission. Her blood cultures remain negative including her port site. Dr. Fabian Tomas (Infectious Disease, [facility]) agreed to be available to speak with us regarding management of this patient. His cell phone number is [phone]. (2) Lung cancer metastatic to brain Patient follows with hematology oncology in [facility]. (3) Pancytopenia due to chemotherapy Pancytopenia has improved significantly. Her absolute neutrophil count has increased to 700. We will continue to monitor with daily CBCs. Neutropenic precautions. (4) Weakness Generalized weakness is likely multifactorial. Likely from her recent chemotherapy as well as anemia and possible infection. Continue with supportive care. Nutrition is on board. PT/OT recommending SNF however patient would like to go home. (5) Hyponatremia Hyponatremia has resolved. She remains on D5 normal saline given her poor oral intake. (6) Hypokalemia Continue with potassium supplementation as needed. (7) SASCHA (obstructive sleep apnea) Continue CPAP as needed for her SASCHA. Disposition: Patient continues to be quite weak and PT/OT are recommending SNF. Her lab work is improving and her cultures have remained negative. She also remained afebrile. We will continue IV antibiotics and reassess over the next 24 to 48 hours for discharge. - Current Meds Current Meds: Current Medications Generic Name Dose Route Start Last Admin Trade Name Naomi PRN Reason Stop Dose Admin Acetaminophen 650 mg 08/28/23 16:19 08/29/23 05:29 Acetaminophen 325 Mg Tablet PO 650 mg Q4HR PRN Administration Pain 1 to 4, or Fever Amlodipine Besylate 2.5 mg 08/30/23 09:00 08/30/23 08:54 Amlodipine 5 Mg Tablet PO 2.5 mg DAILY GLORIA Administration Potassium Chloride/Dextrose/Sod Cl 1,000 mls @ 80 mls/hr 08/28/23 17:00 08/30/23 05:49 D5ns W/20 Meq Kcl IV 80 mls/hr .[id number] GLORIA Administration Cefepime HCl 2 gm/ Sodium 100 mls @ 200 mls/hr 08/29/23 13:00 08/30/23 13:36 Chloride IV 200 mls/hr Q12H GLORIA Administration Levothyroxine Sodium 100 mcg 08/30/23 09:00 08/30/23 08:54 Levothyroxine 100 Mcg Tablet PO 100 mcg DAILY GLORIA Administration Nicotine 1 patch 08/29/23 09:00 08/30/23 08:54 Nicotine 14 Mg Patch TOP 1 patch DAILY GLORIA Administration Nystatin 5 ml 08/29/23 09:00 08/30/23 13:36 Nystatin 355311 Units/5 Ml Udc PO 5 ml QID GLORIA Administration Olanzapine 5 mg 08/29/23 21:00 08/29/23 20:00 Olanzapine Odt 5 Mg Tablet TL 5 mg HS GLORIA Administration Ondansetron HCl 4 mg 08/28/23 16:19 08/29/23 12:08 Ondansetron 4 Mg/2 Ml Vial IVP 4 mg Q6HR PRN Administration Nausea / Vomiting Oxycodone HCl 5 mg 08/28/23 20:45 08/30/23 13:35 Oxycodone 5 Mg Tablet PO 5 mg Q6HR PRN Administration Moderate Pain (Level 4-6) Sodium Chloride 10 ml 08/28/23 17:00 08/30/23 13:29 Sodium Chloride Flush 0.9% 10 Ml Syringe IVP Not Given 0100,0900,1700 [facility] Tramadol HCl 50 mg 08/29/23 17:01 08/30/23 08:54 Tramadol 50 Mg Tablet PO 50 mg BID PRN Administration pain - Lab Result Fish Bone Diagrams: 08/30/23 05:30 08/30/23 05:30 - Additional Planning My Orders: My Active Orders 08/30/23 Clinical Swallow Evaluation [ST] Routine 08/30/23 Dinner Neutropenic (Low Microbial) Diet [DIET] 08/30/23 17:00 Multivitamin W/Minerals [Theragran M] 1 tab PO DAILYWM Vancomycin Inj [Vancomycin] 0.75 gm Sodium Chloride 0.9% [Normal Saline 0.9%] 250 ml IV Q12H 08/30/23 21:00 Lactulose [Enulose] 10 gm PO BID Plan Discussed with:: Patient, Family Subjective - Subjective Patient Reports: Feeling Better, Resting Comfortably (Patient has remained afebrile while inpatient. No acute events overnight.), Fatigue Objective Vital Signs: Vital Signs - 24 hr 08/29/23 08/29/23 08/30/23 16:25 20:01 05:56 Temperature 36.7 C 36.8 C 36.5 C Heart Rate [ 77 73 76 Brachial] Respiratory 16 16 16 Rate Blood Pressure 129/74 110/63 120/65 [Right Brachial artery] O2 Saturation 96 94 96 If not protocol 2 2 2 : Oxygen Flow, liters/minute 08/30/23 08/30/23 08:49 13:00 Temperature 36.5 C 36.8 C Heart Rate [ 78 80 Brachial] Respiratory 18 18 Rate Blood Pressure 119/59 L 117/82 H [Right Brachial artery] O2 Saturation 90 L 90 L If not protocol : Oxygen Flow, liters/minute Oxygen O2 Source Room air I&O (Last 24 Hrs): Intake and Output Totals x24h 08/28/23 08/29/23 08/30/23 23:59 23:59 23:59 Intake Total 2926.333 1898.667 Output Total 450 1000 Balance 2476.333 898.667 General: Alert, Oriented x3, Cooperative, No acute distress HEENT: Atraumatic, PERRLA, EOMI Neck: Supple, No JVD, No thyromegaly, +2 carotid pulse wo bruit, No LAD Lymphatic: no adenopathy Neuro: Alert, CN 2-12 Grossly Intact, Oriented Times 3 Cardiovascular: Regular rate, Normal S1, Normal S2, No murmurs Respiratory: Chest non-tender, No respiratory distress, Breath sounds nml Abdomen: Normal bowel sounds, Soft, No tenderness, No hepatospenomegaly, No masses Genitourinary: Normal External, No Bleeding, No Discharge, No Tenderness, No Adnexal Mass Rectal: Non-Tender Extremities: No clubbing, No cyanosis, No edema, Normal pulses, No tenderness/swelling Skin: No rashes, No breakdown, No significant lesion - Results Results: Laboratory Results WBC 2.3 x10^3/uL (4.8-10.8) L 08/30/23 05:30 RBC 2.68 10^6/uL (4.20-5.40) L 08/30/23 05:30 Hgb 8.4 g/dL (12.0-16.0) L 08/30/23 05:30 Hct 25.2 % (37.0-47.0) L 08/30/23 05:30 MCV 94.0 fL (81.0-99.0) 08/30/23 05:30 MCH 31.3 pg (27.0-31.0) H 08/30/23 05:30 MCHC 33.3 g/dL (32.0-36.0) 08/30/23 05:30 RDW 15.7 % (12.0-15.0) H 08/30/23 05:30 Plt Count 148 10^3/uL (130-450) 08/30/23 05:30 MPV 9.3 fL (7.9-10.8) 08/30/23 05:30 Neut # (Auto) INFORMATION TECHNOLOGY SPECIALIST 08/30/23 05:30 Lymph # (Auto) Not Reportable 08/30/23 05:30 [place] # (Auto) Not Reportable 08/30/23 05:30 Eos # (Auto) Not Reportable 08/30/23 05:30 Baso # (Auto) Not Reportable 08/30/23 05:30 Absolute Nucleated RBC Not Reportable 08/30/23 05:30 Total Counted 100 08/30/23 05:30 Band Neuts % (Manual) 3 % (0-10) 08/30/23 05:30 Reactive Lymphs % (Man) 8 % 08/29/23 04:52 Abnorm Lymph % (Manual) 0 % 08/30/23 05:30 Metamyelocytes % 2 % (-0) H 08/30/23 05:30 Myelocytes % 2 % (-0) H 08/30/23 05:30 Nucleated RBC % Not Reportable 08/30/23 05:30 Neutrophils # (Manual) 0.7 10^3/uL (1.5-6.6) L 08/30/23 05:30 Lymphocytes # (Manual) 1.1 10^3/uL (1.5-3.5) L 08/30/23 05:30 Monocytes # (Manual) 0.4 10^3/uL (0.0-1.0) 08/30/23 05:30 Eosinophils # (Manual) 0.0 10^3/uL (0-0.7) 08/30/23 05:30 Basophils # (Manual) 0.0 10^3/uL (0-0.1) 08/30/23 05:30 Differential Comment MANUAL DIFFERENTIAL 08/30/23 05:30 WBC Morphology NORMAL APPEARANCE (NORMAL) 08/28/23 12:53 Platelet Estimate NORMAL (130-450,000) (NORMAL) 08/30/23 05:30 Platelet Morphology 1+ LARGE PLATELETS (NORMAL) 08/28/23 12:53 RBC Morph Micro Appear NORMAL APPEARANCE (NORMAL) 08/30/23 05:30 Sodium 135 mmol/L (135-145) 08/30/23 05:30 Potassium 3.7 mmol/L (3.5-4.5) 08/30/23 05:30 Chloride 106 mmol/L (101-111) 08/30/23 05:30 Carbon Dioxide 25 mmol/L (21-32) 08/30/23 05:30 Anion Gap 4.0 (6-13) L 08/30/23 05:30 BUN 5 mg/dL (6-20) L 08/30/23 05:30 Creatinine 0.4 mg/dL (0.6-1.3) L 08/30/23 05:30 Estimated GFR (MDRD) 156 (>89) 08/30/23 05:30 Glucose 103 mg/dL (74-104) 08/30/23 05:30 Lactic Acid 0.8 mmol/L (0.5-2.2) 08/28/23 12:53 Calcium 9.0 mg/dL (8.5-10.3) 08/30/23 05:30 Phosphorus 2.2 mg/dL (2.5-5.0) L 08/29/23 04:52 Magnesium 1.3 mg/dL (1.7-2.3) L 08/29/23 04:52 Total Bilirubin 0.4 mg/dL (0.2-1.0) 08/28/23 12:53 AST 9 IU/L (10-42) L 08/28/23 12:53 ALT 8 IU/L (10-60) L 08/28/23 12:53 Alkaline Phosphatase 70 IU/L (42-121) 08/28/23 12:53 Total Protein 6.1 g/dL (6.4-8.9) L 08/28/23 12:53 Albumin 3.3 g/dL (3.2-5.5) 08/28/23 12:53 Globulin 2.8 g/dL (2.1-4.2) 08/28/23 12:53 Albumin/Globulin Ratio 1.2 (1.0-2.2) 08/28/23 12:53 Lipase < 10 U/L (11-82) L 08/28/23 12:53 Urine Color YELLOW 08/28/23 13:21 Urine Clarity CLEAR (CLEAR) 08/28/23 13:21 Urine pH 6.5 PH (5.0-7.5) 08/28/23 13:21 Ur Specific Artesian 1.020 (1.002-1.030) 08/28/23 13:21 Urine Protein TRACE mg/dL (NEGATIVE) 08/28/23 13:21 Urine Glucose (UA) NEGATIVE mg/dL (NEGATIVE) 08/28/23 13:21 Urine Ketones TRACE mg/dL (NEGATIVE) 08/28/23 13:21 Urine Occult Blood NEGATIVE (NEGATIVE) 08/28/23 13:21 Urine Nitrite NEGATIVE (NEGATIVE) 08/28/23 13:21 Urine Bilirubin NEGATIVE (NEGATIVE) 08/28/23 13:21 Urine Urobilinogen 1 (NORMAL) E.U./dL (NORMAL) 08/28/23 13:21 Ur Leukocyte Esterase NEGATIVE (NEGATIVE) 08/28/23 13:21 Ur Microscopic Review NOT INDICATED 08/28/23 13:21 Urine Culture Comments NOT INDICATED 08/28/23 13:21 Nasal Adenovirus (PCR) NOT DETECTED 08/28/23 12:40 Nasal B. parapertussis DNA (PCR) NOT DETECTED 08/28/23 12:40 Nasal Coronavir 229E PCR NOT DETECTED 08/28/23 12:40 Nasal Coronavir HKU1 PCR NOT DETECTED 08/28/23 12:40 Nasal Coronavir NL63 PCR NOT DETECTED 08/28/23 12:40 Nasal Coronavir OC43 PCR NOT DETECTED 08/28/23 12:40 Nasal Enterovir/Rhinovir PCR NOT DETECTED 08/28/23 12:40 Nasal Influenza B PCR NOT DETECTED 08/28/23 12:40 Nasal Influenza A PCR NOT DETECTED 08/28/23 12:40 Nasal Parainfluen 1 PCR NOT DETECTED 08/28/23 12:40 Nasal Parainfluen 2 PCR NOT DETECTED 08/28/23 12:40 Nasal Parainfluen 3 PCR NOT DETECTED 08/28/23 12:40 Nasal Parainfluen 4 PCR NOT DETECTED 08/28/23 12:40 Nasal RSV (PCR) NOT DETECTED 08/28/23 12:40 Nasal B.pertussis DNA PCR NOT DETECTED 08/28/23 12:40 Nasal C.pneumoniae (PCR) NOT DETECTED 08/28/23 12:40 Gordo Human Metapneumo PCR NOT DETECTED 08/28/23 12:40 Nasal M.pneumoniae (PCR) NOT DETECTED 08/28/23 12:40 Nasal SARS-CoV-2 (PCR) NOT DETECTED 08/28/23 12:40 Last Dose Date 08/29/2023 08/30/23 05:30 Last Dose Time 0500 08/30/23 05:30 Vancomycin Peak 34.0 ug/mL (20.0-40.0) 08/29/23 20:08 Vancomycin Trough 16.6 ug/mL 08/30/23 05:30 - Procedures Procedures: Procedures ENDOSC POLYPECTOMY OF LG INTEST (11/04/14) EXCISION OF ASCENDING COLON, ENDO, DIAGN (11/17/21) EXCISION OF RECTUM, ENDO, DIAGN (11/17/21) EXCISION OF SIGMOID COLON, ENDO, DIAGN (11/17/21) Sepsis Event Note (H) - Evaluation Current Stage of Sepsis: Ruled out Current Medications - Current Medications Current Medications: Active Medications Generic Name Dose Route Start Last Admin Trade Name Freq PRN Reason Stop Dose Admin Acetaminophen 650 mg 08/28/23 16:19 08/29/23 05:29 Acetaminophen 325 Mg Tablet PO 650 mg Q4HR PRN Administration Pain 1 to 4, or Fever Amlodipine Besylate 2.5 mg 08/30/23 09:00 08/30/23 08:54 Amlodipine 5 Mg Tablet PO 2.5 mg DAILY GLORIA Administration Potassium Chloride/Dextrose/Sod Cl 1,000 mls @ 80 mls/hr 08/28/23 17:00 08/30/23 05:49 D5ns W/20 Meq Kcl IV 80 mls/hr .[id number] GLORIA Administration Cefepime HCl 2 gm/ Sodium 100 mls @ 200 mls/hr 08/29/23 13:00 08/30/23 13:36 Chloride IV 200 mls/hr Q12H GLORIA Administration Vancomycin HCl 0.75 gm/ Sodium 250 mls @ 250 mls/hr 08/30/23 17:00 Chloride IV Q12H GLORIA Ibuprofen 600 mg 08/29/23 17:04 Ibuprofen 600 Mg Tablet PO BID PRN Moderate Pain (Level 4-6) Lactulose 10 gm 08/30/23 21:00 Lactulose 10 Gm /15 Ml Udc PO BID GLORIA Levothyroxine Sodium 100 mcg 08/30/23 09:00 08/30/23 08:54 Levothyroxine 100 Mcg Tablet PO 100 mcg DAILY GLORIA Administration Multivitamins/Minerals 1 tab 08/30/23 17:00 Multivitamin W/Minerals Tablet PO DAILYWM GLORIA Nicotine 1 patch 08/29/23 09:00 08/30/23 08:54 Nicotine 14 Mg Patch TOP 1 patch DAILY GLORIA Administration Nystatin 5 ml 08/29/23 09:00 08/30/23 13:36 Nystatin 505996 Units/5 Ml Udc PO 5 ml QID GLORIA Administration Olanzapine 5 mg 08/29/23 21:00 08/29/23 20:00 Olanzapine Odt 5 Mg Tablet TL 5 mg HS GLORIA Administration Ondansetron HCl 4 mg 08/28/23 16:19 08/29/23 12:08 Ondansetron 4 Mg/2 Ml Vial IVP 4 mg Q6HR PRN Administration Nausea / Vomiting Oxycodone HCl 5 mg 08/28/23 20:45 08/30/23 13:35 Oxycodone 5 Mg Tablet PO 5 mg Q6HR PRN Administration Moderate Pain (Level 4-6) Oxycodone HCl 5 mg 08/29/23 17:01 Oxycodone 5 Mg Tablet PO Q6H PRN pain Sodium Chloride 10 ml 08/28/23 16:19 Sodium Chloride Flush 0.9% 10 Ml Syringe IVP PRN PRN NEEDED PER PROVIDER ORDERS Sodium Chloride 10 ml 08/28/23 17:00 08/30/23 13:29 Sodium Chloride Flush 0.9% 10 Ml Syringe IVP Not Given 0100,0900,1700 GLORIA Tramadol HCl 50 mg 08/29/23 17:01 08/30/23 08:54 Tramadol 50 Mg Tablet PO 50 mg BID PRN Administration pain Levothyroxine [Synthroid] 100 mcg PO DAILY 11/16/21 amLODIPine [Norvasc] 2.5 mg PO DAILY 11/16/21 Ibuprofen 600 mg PO BID PRN 11/17/21 Melatonin/Pyridoxine [Melatonin 5 mg Tablet] 10 mg PO DAILY PM 11/17/21 OLANZapine [Zyprexa] 5 mg PO HS 08/29/23 Prochlorperazine Maleate [Compazine] 10 mg PO Q6H PRN 08/29/23 oxyCODONE [Roxicodone] 5 mg PO Q6H PRN 08/29/23 traMADol [Ultram] 50 mg PO BID PRN 08/29/23
[2023-08-30] MEDS: MULTIVITAMIN W/MINERALS TABLET PO SCH (17:40)
[2023-08-30] MEDS: VANCOMYCIN INJ 0.75 GM in SODIUM CHLORIDE 0.9% 250 ML IV SCH (17:41)
[2023-08-30] MEDS: ONDANSETRON 4 MG/2 ML VIAL IVP PRN (17:42)
[2023-08-30] MEDS ORDERED: ONDANSETRON ODT 4 MG TABLET TL PRN (19:13)
[2023-08-30] MEDS: OLANZapine ODT 5 MG TABLET TL SCH (20:37)
[2023-08-30] MEDS: LACTULOSE 10 GM /15 ML UDC PO SCH (20:37)
[2023-08-31] MEDS: CEFEPIME 2 GM in SODIUM CHLORIDE 0.9% MINIBAG 100 ML IV SCH (00:58)
[2023-08-31] MEDS: VANCOMYCIN INJ 0.75 GM in SODIUM CHLORIDE 0.9% 250 ML IV SCH (05:03)
[2023-08-31 05:53] LABS: BASOPHILS % (AUTO) 1.8 %; EOSINOPHILS % (AUTO) 1.1 %; HCT - HEMATOCRIT 28.5 % (37.0-47.0); HGB - HEMOGLOBIN 9.1 g/dL (12.0-16.0); LYMPHOCYTES % (AUTO) 15.4 %; MEAN CORPUSCULAR HGB CONC 31.9 g/dL (32.0-36.0); MEAN CORPUSCULAR VOLUME 96.9 fL (81.0-99.0); MEAN PLATELET VOLUME 9.4 fL (7.9-10.8); MONOCYTES % (AUTO) 29.9 %; NEUTROPHILS % (AUTO) 31.8 %; PLT - PLATELET COUNT 213 10^3/uL (130-450); RED BLOOD COUNT 2.94 10^6/uL (4.20-5.40); RED CELL DISTRIBUTION WIDTH 15.7 % (12.0-15.0); WHITE BLOOD COUNT 4.4 x10^3/uL (4.8-10.8)
[2023-08-31 06:01] LABS: ABNORMAL LYMPHS % (MANUAL) 0 %
[2023-08-31 06:05] LABS: CALCIUM 9.2 mg/dL (8.5-10.3); CREATININE 0.4 mg/dL (0.6-1.3); POTASSIUM 3.4 mmol/L (3.5-4.5)
[2023-08-31 06:28] LABS: BAND NEUTROPHILS % (MANUAL) 9 %; DIFFERENTIAL COMMENT MANUAL DIFFERENTIAL; LYMPHOCYTES # (MANUAL) 1.8 10^3/uL (1.5-3.5); LYMPHOCYTES % (MANUAL) 40 %; METAMYELOCYTES % (MANUAL) 7 %; MONOCYTES # (MANUAL) 0.5 10^3/uL (0.0-1.0); MYELOCYTES % (MANUAL) 7 %; NEUTROPHILS # (MANUAL) 1.5 10^3/uL (1.5-6.6); PLATELET ESTIMATE, MANUAL NORMAL (130-450,000) (NORMAL); RBC MORPHOLOGY (MULTIPLE) 1+ HYPOCHROMASIA (NORMAL)
[2023-08-31] MEDS: LACTULOSE 10 GM /15 ML UDC PO SCH (08:12)
[2023-08-31] MEDS: NICOTINE 14 MG PATCH TOP SCH (08:12)
[2023-08-31] MEDS: NYSTATIN 500000 UNITS/5 ML UDC PO SCH ×2 (08:14→13:53)
[2023-08-31] MEDS: SODIUM CHLORIDE FLUSH 0.9% 10 ML SYRINGE IVP SCH (08:14)
[2023-08-31] MEDS: LEVOTHYROXINE 100 MCG TABLET PO SCH (08:14)
[2023-08-31] MEDS: amLODIPine 5 MG TABLET PO SCH (08:14)
[2023-08-31] MEDS: MULTIVITAMIN W/MINERALS TABLET PO SCH (08:14)
[2023-08-31] MEDS: traMADol 50 MG TABLET PO PRN (08:16)
[2023-08-31] MEDS ORDERED: levoFLOXacin 250 MG TABLET PO SCH (09:00)
--- NOTE | 2023-08-31 09:15 | Discharge Plan ---
Discharge Plan Problem Reviewed?: Yes Disposition: Home, Self Care Condition: Fair Prescriptions: levoFLOXacin [Levaquin] 500 mg PO DAILY #7 tab Diet: Regular Activity Restrictions: No Restrictions No Smoking: If you smoke, Please STOP! Call for help.
[2023-08-31 10:34] LABS: MAGNESIUM 1.4 mg/dL (1.7-2.3); PHOSPHORUS 2.1 mg/dL (2.5-5.0)
[2023-08-31] MEDS ORDERED: MAGNESIUM SULFATE 2 GRAM 2 GM/50 ML BAG IV ONE (10:57)
[2023-08-31] MEDS ORDERED: SODIUM PHOSPHATE 15 MMOL in SODIUM CHLORIDE 0.9% 250 ML IV ONE (10:57)
--- NOTE | 2023-08-31 10:59 | DISCHARGE SUMMARY ---
Discharge Summary Discharge Date: 08/31/23 Discharging Provider: Suzanne Grajeda Code Status: Do Not Attempt Resuscitation Condition at Discharge: Fair Discharge Disposition: Home Health Service - DIAGNOSES Admission Diagnoses: Neutropenic fever Discharge Diagnoses with Status of Each Condition: Neutropenic fever - resolved - HPI History of Present Illness: This is a 73-year-old female with a history of lung cancer with brain mets. She has a port in place and gets chemotherapy. She was admitted to [facility] a month ago for neutropenic fever for which she received IV antibiotics for 2 weeks, then Infectious Disease cleared her port to be used again and she had chemotherapy done 10 days ago. She felt all right after chemo until today when she developed weakness. The daughter measured her temperature and noted a fever of 101.6 at home. She was too weak to get into the car to be transported to the hospital so EMS was called. EMS also obtained a fever, temp was 102. In the ER, work-up shows absolute neutrophil count of 0, White blood count of 0.9, platelet count of 101K. Sodium 133, Potassium 3.7. Chest x-ray was a poor inspiratory film. The port site appeared clean with no redness or tenderness. The ED provider spoke to me about this patient for admission and I advised that the [facility] Infectious Disease provider be contacted first, for recommendations and to have the patient preferably transferred to [facility] for care. [facility] had no open beds. The ED provider spoke to the Infectious Disease doctor on-call, who said that the patient could be hospitalized here and that he would be available every day this upcoming week for consultation. The patient had blood cultures drawn while in the ER, including 1 culture drawn from her port. She received IV cefepime and IV vancomycin. The ED provider then spoke to me again and this patient will be admitted to the Hospitalist team to manage neutropenic fever. At the bedside, the patient is minimally communicative, is weak, requesting a warm blanket. She denies any pain anywhere. - HOSPITAL COURSE Hospital Course: Patient is a 73-year-old female who presented to the ED approximately 10 days postchemotherapy after a measured fever of 101.6 F at home with associated weakness. Upon presentation she was noted to have a white blood cell count of 0.9 and ANC of 0. The case was discussed with infectious disease at [facility] for potential transfer however they do not have any open beds. The patient was therefore admitted and started on IV vancomycin and cefepime. Cultures were obtained of her port site as well as urine and blood. Chest x-ray was negative. Her cultures returned negative during her admission and she was afebrile during her stay here. The case was discussed with infectious disease who had recommended starting prophylactic levofloxacin in lieu of IV antibiotics. She was subsequently discharged on 5 days of oral levofloxacin. She will follow-up with hematology/oncology on 09/05. She was discharged with home health services. PT/OT did recommend care home facility however patient declined. On day of discharge patient had a white blood cell count of 4.4 and ANC of 1.7. - ALLERGIES Allergies/Adverse Reactions: Allergies Allergy/AdvReac Type Severity Reaction Status Date / Time atorvastatin AdvReac Unknown Verified 08/28/23 12:28 - MEDICATIONS Home Medications: Ambulatory Orders Medication Instructions Recorded Confirmed Levothyroxine [Synthroid] 100 mcg PO DAILY 11/16/21 08/29/23 amLODIPine [Norvasc] 2.5 mg PO DAILY 11/16/21 08/29/23 Ibuprofen 600 mg PO BID PRN 11/17/21 08/29/23 Melatonin/Pyridoxine [Melatonin 5 10 mg PO DAILY PM 11/17/21 08/29/23 mg Tablet] OLANZapine [Zyprexa] 5 mg PO HS 08/29/23 08/29/23 Prochlorperazine Maleate 10 mg PO Q6H PRN 08/29/23 08/29/23 [Compazine] oxyCODONE [Roxicodone] 5 mg PO Q6H PRN 08/29/23 08/29/23 traMADol [Ultram] 50 mg PO BID PRN 08/29/23 08/29/23 Acetaminophen [Tylenol] 650 mg PO Q4HR PRN tab 08/31/23 levoFLOXacin [Levaquin] 500 mg PO DAILY #7 tab 08/31/23 - PHYSICAL EXAM AT DISCHARGE General Appearance: positive: No acute distress, Alert Respiratory: positive: Chest non-tender, No respiratory distress Cardiovascular: positive: Regular rate & rhythm, No murmur, No gallop Abdomen: positive: Non-tender, No organomegaly, Nml bowel sounds, No distention. negative: Tenderness Neurologic/Psychiatric: positive: Oriented x3, CN's nml (2-12) - LABS Result Diagrams: 08/31/23 05:39 08/31/23 05:39 - SEPSIS Current Stage of Sepsis: Ruled out - FOLLOW UP Follow Up: Follow-up with PCP in 3-5 days. - TIME SPENT Time Spent in Discharge (Minutes): 35
[2023-08-31] MEDS: D5NS W/20 MEQ KCL 1,000 ML IV SCH (12:19)
[2023-08-31] MEDS: oxyCODONE 5 MG TABLET PO PRN (12:43)
[2023-08-31] MEDS: ACETAMINOPHEN 325 MG TABLET PO PRN (12:45)
[2023-08-31 14:48] VITALS: BP 113/71; O2SAT 94
== END 2023-08-31 14:15 | disposition home health service (06) | DRG 809 ==
LOC: EDUNIT# → ED 12:24 → MS2 16:19
PROVIDERS: ADMIT Internal Medicine; ATTEND Family Medicine
DX: D70.9 Neutropenia, unspecified (principal); D70.1 Agranulocytosis secondary to cancer chemotherapy; C34.90 Malignant neoplasm of unspecified part of unspecified bronchus or lung; C79.31 Secondary malignant neoplasm of brain; E87.1 Hypo-osmolality and hyponatremia; I10 Essential (primary) hypertension; E78.00 Pure hypercholesterolemia, unspecified; E03.9 Hypothyroidism, unspecified; D61.818 Other pancytopenia; Z92.21 Personal history of antineoplastic chemotherapy; R50.81 Fever presenting with conditions classified elsewhere; T45.1X5A Adverse effect of antineoplastic and immunosuppressive drugs, initial encounter; Y92.009 Unspecified place in unspecified non-institutional (private) residence as the place of occurrence of the external cause; D61.810 Antineoplastic chemotherapy induced pancytopenia; R53.1 Weakness; E87.6 Hypokalemia; G47.33 Obstructive sleep apnea (adult) (pediatric); B37.9 Candidiasis, unspecified; F17.210 Nicotine dependence, cigarettes, uncomplicated; G89.29 Other chronic pain; L65.9 Nonscarring hair loss, unspecified; E66.9 Obesity, unspecified; Z68.30 Body mass index [BMI] 30.0-30.9, adult
CPT/HCPCS: 36415; 71045; 80048; 80053; 80202; 81003; 83605; 83690; 83735; 84100; 84295; 85025; 87040; 87086; 87633; 93005; 96365; 96366; 96368; 97162; 97166; 97530; 97535; 99285; A9270; J3370; Q0162; 81001